=== PATIENT | female | born 1945 | race Caucasian/White ===

== ENCOUNTER 2023-10-28 09:28 | Outpatient (AMB) | payer MEDICARE, SELFPAY ==
--- NOTE | 2023-10-28 10:09 | A.OFFPC_ITS ---
Vital Signs 10/28/23 10:19 10/28/23 10:21 Height 5 ft 2.5 in Weight 162 lb 4 oz BMI 29.2 BP 156/90 H 150/88 H Blood Pressure Location Lt brachial Lt brachial Position Sitting Sitting Respiration 16 Pulse 81 Pulse Source Pulse Oximeter Temp 98.4 F Temp Source Oral Pulse Oximetry (%) 96 Oxygen Delivery Method Room Air Intake Visit Reasons: est care/ meds Intake Note: New patient visit. Metoprolol refill, and PA needed Child Protective Services Social Worker Required: No Allergies levalbuterol [From Xopenex] Allergy (Severe, Verified 10/28/23 10:50) leg cramps HECTOR Inhibitors Allergy (Unknown, Verified 10/28/23 10:50) Fainting albuterol Allergy (Unknown, Verified 10/28/23 10:50) Chest Pain atorvastatin [From Lipitor] Allergy (Unknown, Verified 10/28/23 10:50) muscle wasting budesonide [From Pulmicort] Allergy (Unknown, Verified 10/28/23 10:50) Fainting codeine Allergy (Unknown, Verified 10/28/23 10:50) Hallucinations epinephrine Allergy (Unknown, Verified 10/28/23 10:50) elevated blood pressure erythromycin base Allergy (Unknown, Verified 10/28/23 10:50) shock like stupor gemfibrozil [From Lopid] Allergy (Unknown, Verified 10/28/23 10:50) bloody diarrhea meclizine Allergy (Unknown, Verified 10/28/23 10:50) itchy roof mouth nabumetone [From Relafen] Allergy (Unknown, Verified 10/28/23 10:50) Facial Swelling omega-3 acid ethyl esters Allergy (Unknown, Verified 10/28/23 10:50) Facial Swelling penicillin V Allergy (Unknown, Verified 10/28/23 10:50) Hives Penicillins Allergy (Unknown, Verified 10/28/23 10:50) Hives rofecoxib [From Vioxx] Allergy (Unknown, Verified 10/28/23 10:50) Facial Swelling tetracycline Allergy (Unknown, Verified 10/28/23 10:50) Rash iodine Allergy (Verified 10/28/23 10:50) Facial Swelling Sulfa (Sulfonamide Antibiotics) Allergy (Verified 10/28/23 10:50) Rash Medication List - Last Reconciled 10/28/23 by Karen Mondragon MD amlodipine (Norvasc) 2.5 mg PO DAILY clopidogrel 75 mg PO DAILY guar gum 1 tbsp PO DAILY ipratropium bromide 17 mcg/actuation (Atrovent HFA) 2 puffs inhalation Q8H loratadine 10 mg PO DAILY 90 days montelukast 5 mg PO DAILY nitrofurantoin monohyd/m-cryst 100 mg 100 mg PO Q12H PRN 7 days pantoprazole 40 mg PO DAILY rosuvastatin 5 mg PO .QOD tizanidine mg PO Q8H PRN Toprol XL (metoprolol succinate) 25 mg PO DAILY 90 days NS triamterene 50 mg PO DAILY vit C,E,Zn,Sg-nifcv3-hhw-zeax 250-2.5-0.5 mg caps PO vit C,V-Ol-govas-lutein-zeaxan 250-90-40-1 mg (PreserVision AREDS-2) 1 tab PO BID 90 days Tobacco use date assessed: 10/28/23 Fall risk assessment: No Falls in past year Last assessed Fall Risk: 10/28/23 Dental Screening Dental Screen Date: 10/28/23 Did you have a dental visit in the last 12 months?: Yes Did you have a dental problem in the last 6 months where you did not have access to dental care?: No Was dental information given to patient?: Patient has dentist HPI HPI Comments History of Present Illness Details The patient is a 78 year old female with a past medical history of hypertension, hyperlipidemia, CVA, allergies, frequent UTI presenting for follow up CV: On amlodipine 2.5mg daily (does not tolerate generic), toprol 25mg daily (does not tolerate generic!), plavix, crestor 5mg every few days (difficulty tolerating statins). 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 Her neurologist is retiring OA: Joint pain, neck pain. Residual right sided weakness after CVA Urogyn: History of frequent UTI. Uses post coital macrobid. Needs less frequently as has h/o prostate cancer Neuropsych: History of CVA as above. 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 Had a lot of stress 2/2 husbands cancer. Her balance was worse in the setting of stress. [facility] Medical History (Updated 10/28/23 @ 15:34 by Karen Mondragon MD) Hypercholesteremia Anxiety Imbalance Memory loss Incontinence Asthma Surgical History (Updated 10/28/23 @ 10:51 by Joslyn Van CMA) H/O section History of tonsillectomy Family History (Updated 10/28/23 @ 10:55 by Joslyn Van CMA) Mother HTN (hypertension) Cardiovascular disease Thyroid disorder Maternal Grandmother HTN (hypertension) Cardiovascular disease Maternal Grandfather Cardiovascular disease Social History (Updated 10/28/23 @ 10:52 by Joslyn Van CMA) Housing: House Patient Tobacco Use Status: Never used Tobacco e-Cigarette/Vaping Use: Never Used service: No Current occupational status: retired Cognitive needs: No Hearing needs: Yes (Hearing needs) Vision needs: Yes (glasses) Questionnaire PHQ-9 Over the last 2 weeks, how often have you been bothered by any of the following problems? 1. Little interest or pleasure in doing things: not at all 2. Feeling down, depressed, or hopeless: not at all 3. Trouble falling or staying asleep, or sleeping too much: several days 4. Feeling tired or having little energy: not at all 5. Poor appetite or overeating: not at all 6. Feeling bad about yourself - or that you are a failure or have let yourself or your family down: not at all 7. Trouble concentrating on things, such as reading the newspaper or watching television: not at all 8. Moving or speaking so slowly that other people could have noticed. Or the opposite - being so fidgety or restless that you have been moving around a lot more than usual: not at all 9. Thoughts that you would be better off or of hurting yourself in some way: not at all Total score: 1 Depression Screening Interpretation: Negative (neg) Depression Screening Done: Yes 43883 - PHQ-9 Billing: Yes Source: Developed by Drs. Casimiro Mcdermott, Jojo Jackson, Luther Lanier and colleagues, with an educational corina from [employer]. Thrive Questionnaire Date Thrive assessed: 10/28/23 I am a: Patient What is your living situation today?: I have a steady place to live Within the past 12 months, did the food you bought not last and you didn't have the money to get more?: Never true Within the past 12 months, did you worry whether your food would run out before you got money to buy more?: Never true Do you have trouble paying for medicines?: No Do you have trouble getting transportation to medical appointments?: No Do you have trouble paying your heating and electricity bill?: No Do you have trouble taking care of your child, family member or friend?: No Do you have trouble with day-to-day activities such as bathing, preparing meals, shopping, managing finances, etc.?: No Are you currently unemployed and looking for a job?: No Are you interested in more education?: No Please select the resources that you would like help with: None Currently or been in a relationship where the following occur: no concerns reported THRIVE Score: 0 AUDIT C Alcohol Use Questionnaire (AUDIT-C) 1. How often do you have a drink containing alcohol?: Never 3. How often do you have six or more drinks on one occasion?: Never Total Score: 0 CJ-7 AMB Questionnaire CJ-7 Date CJ - 7 assessed: 10/28/23 Feeling nervous, anxious, or on edge: 1 = Several days Not being able to stop or control worryin = Several days Worrying too much about different things: 1 = Several days Trouble relaxin = Several days Being so restless that it is hard to sit still: 0 = Not at all Becoming easily annoyed or irritable: 1 = Several days Feeling afraid as if something awful might happen: 0 = Not at all Total CJ-7 score (0-4 normal; 5-9 mild; 10-14 moderate; 15-21 severe): 5 Source: Developed by Drs. Casimiro Mcdermott, Jojo Jackson, Luther Lanier and colleagues, with an educational corina from [employer]. CJ-7 Assessment Billing CJ-7 Assessment Tool: CJ-7 Assessment 73008 Review of Systems Const Details: ROS CONSTITUTIONAL: Denies weight loss, fever and chills. HEENT: Denies changes in vision and hearing. RESPIRATORY: Denies SOB and cough. CV: Denies palpitations and CP GI: Denies abdominal pain, nausea, vomiting and diarrhea. : Denies dysuria and urinary frequency. MSK: Denies new myalgia and joint pain. SKIN: Denies rash and pruritus. NEUROLOGICAL: Denies headache PSYCHIATRIC: Denies recent changes in mood. Physical exam (Primary Care) Vital Signs: Last Vital Signs Temp 98.4 F 10/28/23 10:19 Pulse 81 10/28/23 10:19 Resp 16 10/28/23 10:19 BP 150/88 H 10/28/23 10:21 Pulse Ox 96 10/28/23 10:19 Oxygen Delivery Method Room Air 10/28/23 10:19 PHYSICAL EXAM: GENERAL: Alert and oriented x 3. NAD EYES: EOMI. Anicteric. HENT: Moist mucous membranes. No scleral icterus. No cervical lymphadenopathy. LUNGS: Clear to auscultation bilaterally. CARDIOVASCULAR: Regular rate and rhythm. No murmur. No JVD. ABDOMEN: Soft, non-tender +bs EXTREMITIES: No edema. Non-tender. SKIN: No rashes or lesions. Warm. NEUROLOGIC: No focal neurological deficits. CN II-XII grossly intact PSYCHIATRIC: Cooperative. Appropriate mood and affect BMI result Body Mass Index 29.2 Tobacco/Smoking Status: Tobacco use Status Tobacco use date assessed 10/28/23 10/28/23 10:24 Patient Tobacco Use Status Never used Tobacco 10/28/23 10:24 e-Cigarette/Vaping Use Never Used 10/28/23 10:24 PHQ-9: PHQ-9 Score PHQ-9: Total score 1 10/28/23 11:05 Depression Screening Interpretation: Negative (neg) Thrive Assessment: Date of Thrive Assessment Date Thrive assessed 10/28/23 10/28/23 10:56 Currently or been in a relationship where the following occur: no concerns reported Assessment and Plan Assessment & Plan (1) Hypertension: Comment: Adequately controlled on current medications. Code(s): I10 - Essential (primary) hypertension Qualifiers: Hypertension type: primary hypertension Qualified Code(s): I10 - Essential (primary) hypertension (2) Allergies: Code(s): T78.40XA - Allergy, unspecified, initial encounter Qualifiers: Encounter type: sequela Qualified Code(s): T78.40XS - Allergy, unspecified, sequela (3) GERD (gastroesophageal reflux disease): Code(s): K21.9 - Gastro-esophageal reflux disease without esophagitis Qualifiers: Esophagitis presence: esophagitis presence not specified Qualified Code(s): K21.9 - Gastro-esophageal reflux disease without esophagitis (4) Hyperlipidemia: Comment: Takes statin as tolerated Code(s): E78.5 - Hyperlipidemia, unspecified Qualifiers: Hyperlipidemia type: mixed hyperlipidemia Qualified Code(s): E78.2 - Mixed hyperlipidemia (5) CVA (cerebral vascular accident): Code(s): I63.9 - Cerebral infarction, unspecified Qualifiers: CVA mechanism: unspecified Qualified Code(s): I63.9 - Cerebral infarction, unspecified (6) KIMBERLY treated with BiPAP: Code(s): G47.33 - Obstructive sleep apnea (adult) (pediatric) (7) Heart murmur: Code(s): R01.1 - Cardiac murmur, unspecified (8) Osteopenia: Code(s): M85.80 - Other specified disorders of bone density and structure, unspecified site Qualifiers: Osteopenia location: unspecified Qualified Code(s): M85.80 - Other specified disorders of bone density and structure, unspecified site (9) Lumbar disc disease: Code(s): M51.9 - Unspecified thoracic, thoracolumbar and lumbosacral intervertebral disc disorder (10) Vertigo: Code(s): R42 - Dizziness and giddiness (11) Osteoarthritis: Code(s): M19.90 - Unspecified osteoarthritis, unspecified site Qualifiers: Osteoarthritis location: multiple joints Osteoarthritis type: primary Qualified Code(s): M15.9 - Polyosteoarthritis, unspecified (12) IBS (irritable bowel syndrome): Code(s): K58.9 - Irritable bowel syndrome without diarrhea Qualifiers: Irritable bowel syndrome type: unspecified Qualified Code(s): K58.9 - Irritable bowel syndrome without diarrhea (13) Anxiety disorder, unspecified: Code(s): F41.9 - Anxiety disorder, unspecified Qualifiers: Anxiety disorder type: unspecified anxiety disorder Qualified Code(s): F41.9 - Anxiety disorder, unspecified Medications: New rosuvastatin 5 mg PO .QOD Toprol XL (metoprolol succinate) 25 mg PO DAILY 90 days 90 tabs 3RF NS loratadine 10 mg PO DAILY 90 days 90 tabs 3RF nitrofurantoin monohyd/m-cryst 100 mg must administer with a meal/food 100 mg PO Q12H 7 days PRN 14 caps 3RF dysuria ipratropium bromide 17 mcg/actuation (Atrovent HFA) 2 puffs inhalation Q8H 12.9 grams 0RF vit C,E-Zj-yvysk-lutein-zeaxan 250-90-40-1 mg (PreserVision AREDS-2) 1 tab PO BID 90 days 90 caps 0RF nitrofurantoin monohyd/m-cryst 100 mg must administer with a meal/food 100 mg PO Q12H 7 days PRN 14 caps 3RF dysuria Coding Level of Care Code Est Pt Level 5 (22720) Complex EM visit Add On G2211 Diagnoses Primary hypertension I10 Hypertension type: primary hypertension Allergy, sequela T78.40XS Encounter type: sequela Gastroesophageal reflux disease, unspecified whether esophagitis present K21.9 Esophagitis presence: esophagitis presence not specified Mixed hyperlipidemia E78.2 Hyperlipidemia type: mixed hyperlipidemia Cerebrovascular accident (CVA), unspecified mechanism I63.9 CVA mechanism: unspecified KIMBERLY treated with BiPAP G47.33 Heart murmur R01.1 Osteopenia, unspecified location M85.80 Osteopenia location: unspecified Lumbar disc disease M51.9 Vertigo R42 Primary osteoarthritis involving multiple joints M15.9 Osteoarthritis location: multiple joints Osteoarthritis type: primary Irritable bowel syndrome, unspecified type K58.9 Irritable bowel syndrome type: unspecified Anxiety disorder, unspecified type F41.9 Anxiety disorder type: unspecified anxiety disorder Additional Codes CJ-7 Assessment Billing - CJ-7 Assessment Tool: CJ-7 Assessment 53170 ([id number]) Time Spent (min) 53
[2023-10-28 10:19] VITALS: BP 156/90; PULSE 81; RESP 16; TEMP 36.9; O2SAT 96; BMI 29.2
[2023-10-28 10:21] VITALS: BP 150/88
== END 2023-10-28 11:07 | disposition home or self-care (01) ==
PROVIDERS: PCP Internal Medicine; Visit Provider Internal Medicine
DX: I10 Essential (primary) hypertension (principal); T78.40XS Allergy, unspecified, sequela; K21.9 Gastro-esophageal reflux disease without esophagitis; E78.2 Mixed hyperlipidemia; I63.9 Cerebral infarction, unspecified; G47.33 Obstructive sleep apnea (adult) (pediatric); R01.1 Cardiac murmur, unspecified; M85.80 Other specified disorders of bone density and structure, unspecified site; M51.9 Unspecified thoracic, thoracolumbar and lumbosacral intervertebral disc disorder; R42 Dizziness and giddiness; M15.9 Polyosteoarthritis, unspecified; K58.9 Irritable bowel syndrome, unspecified
CPT/HCPCS: 99215; G2211

== ENCOUNTER 2024-04-09 08:06 | Outpatient (AMB) | payer MEDICARE, SELFPAY ==
--- NOTE | 2024-04-09 08:25 | A.OFFVIS_ITS ---
Intake Vital Signs 04/09/24 08:32 04/09/24 09:22 Height 5 ft 2.5 in Weight 159 lb 8 oz BMI 28.7 BP 144/80 H 136/72 Blood Pressure Location Lt brachial Lt brachial Position Sitting Left Lateral Respiration 14 Pulse 80 Pulse Source Pulse Oximeter Pulse Oximetry (%) 97 Oxygen Delivery Method Simple Mask Intake Visit Reasons: Medicare Annual Wellness Intake Note: annual medicare wellness Allergies levalbuterol [From Xopenex] Allergy (Severe, Verified 04/09/24 09:12) leg cramps HECTOR Inhibitors Allergy (Unknown, Verified 04/09/24 09:12) Fainting albuterol Allergy (Unknown, Verified 04/09/24 09:12) Chest Pain atorvastatin [From Lipitor] Allergy (Unknown, Verified 04/09/24 09:12) muscle wasting budesonide [From Pulmicort] Allergy (Unknown, Verified 04/09/24 09:12) Fainting codeine Allergy (Unknown, Verified 04/09/24 09:12) Hallucinations epinephrine Allergy (Unknown, Verified 04/09/24 09:12) elevated blood pressure erythromycin base Allergy (Unknown, Verified 04/09/24 09:12) shock like stupor gemfibrozil [From Lopid] Allergy (Unknown, Verified 04/09/24 09:12) bloody diarrhea meclizine Allergy (Unknown, Verified 04/09/24 09:12) itchy roof mouth nabumetone [From Relafen] Allergy (Unknown, Verified 04/09/24 09:12) Facial Swelling omega-3 acid ethyl esters Allergy (Unknown, Verified 04/09/24 09:12) Facial Swelling penicillin V Allergy (Unknown, Verified 04/09/24 09:12) Hives Penicillins Allergy (Unknown, Verified 04/09/24 09:12) Hives rofecoxib [From Vioxx] Allergy (Unknown, Verified 04/09/24 09:12) Facial Swelling tetracycline Allergy (Unknown, Verified 04/09/24 09:12) Rash iodine Allergy (Verified 04/09/24 09:12) Facial Swelling Sulfa (Sulfonamide Antibiotics) Allergy (Verified 04/09/24 09:12) Rash Medication List - Last Reconciled 04/09/24 by Dona Merino, THEATRICAL TROUPER- amlodipine (Norvasc) 2.5 mg PO DAILY clopidogrel 75 mg PO DAILY guar gum 1 tbsp PO DAILY ipratropium bromide 17 mcg/actuation (Atrovent HFA) 2 puffs inhalation Q8H loratadine 10 mg PO DAILY 90 days montelukast 5 mg PO DAILY nitrofurantoin monohyd/m-cryst 100 mg 100 mg PO Q12H PRN 7 days pantoprazole 40 mg PO DAILY rosuvastatin 5 mg PO DAILY tizanidine mg PO Q8H PRN Toprol XL (metoprolol succinate) 25 mg PO DAILY 90 days NS triamterene 50 mg PO DAILY vit C,E,Zn,Fe-ugdqh8-twg-zeax 250-2.5-0.5 mg caps PO vit C,T-Ug-mecht-lutein-zeaxan 250-90-40-1 mg (PreserVision AREDS-2) 1 tab PO BID 90 days Do you need a note to return to daycare/school/sports/work: No HPI HPI Comments History of Present Illness Details Here today for AWV. The Medicare Annual Wellness Visit (AWV) is a yearly appointment with a health professional to identify health risks and help reduce them and to create or update a personalized prevention plan. During a Medicare AWV, health professionals should also review any current opioid prescriptions, detect any cognitive impairment, and establish or update medical and family history. 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 Colon: 2018 Mammo: reports done Summer 2023 DEXA Summer 2023 -2.4 PAP Summer 2023 every 2 years Vaccines: Flu declined; Tdap 2017. AAA screen: NA EKG: n/a [place] of Care: Neuro Opth[facility] Endo And as noted in chart Visual Acuity: See below, wears glasses, has macular Hearing Screening: Wears hearing aides; Normal w/ aides. ACP: HCP and MOLST complete - asked to scan into chart today Dietary/Nutrition/Exercise Edu provided: Y During the course of the visit the patient was educated and counseled about appropriate screening and preventative services. Patient instructions were provided to the patient in written or electronic format. I have reviewed and verified the above information. New problem discuss today. She reports that she has a history of orthostatic hypotension that was worsened by travel back in November. She was several all ergies. Reports that she was not able to drink any for the steven while on the airplane. [place] like she was dehydrated. She was traveling tomorrow to [place] and worries about recurrence BP log and P log from 11/2023- current reviewed SBP range 140-110 DBP [id number] P range 60-80 bpm GERD w/ AERads taken for Macular - see below for details. Plan Advised for the patient to hydrate liberally at least 24 hours before her flight. Include something like Pedialyte or electrolyte solution that she was able to tolerate. While she was at the airport I have advised for her to bring an empty water bottle in use the tap water on hand. She should continue to monitor her vital signs and follow up with her primary care provider. Call Optho re: GERD with med; if addl PPI needed, send portal message Cont all meds as directed cont care w/ team RTO 6 mo routine fu with PCP, sooner PRN This note is constructed using voice recognition software. While every effort has been made to ensure accuracy in habitat management coordinator, still errors may have been included Sometimes, these errors may affect the content or meaning of the given sentence . Total time spent caring for the patient today was 20 minutes. This includes time spent before the visit reviewing the chart, time spent during the visit, and time spent after the visit on documentation [facility] Medical History (Updated 04/09/24 @ 16:11 by Dona Merino, GINA-) Hypercholesteremia Anxiety Imbalance Memory loss Incontinence Asthma Surgical History (Updated 10/28/23 @ 10:51 by Joslyn Van CMA) H/O section History of tonsillectomy Family History (Updated 10/28/23 @ 10:55 by Joslyn Van CMA) Mother HTN (hypertension) Cardiovascular disease Thyroid disorder Maternal Grandmother HTN (hypertension) Cardiovascular disease Maternal Grandfather Cardiovascular disease Social History (Updated 10/28/23 @ 10:52 by Joslyn Van CMA) Housing: House Patient Tobacco Use Status: Never used Tobacco e-Cigarette/Vaping Use: Never Used service: No Current occupational status: retired Cognitive needs: No Hearing needs: Yes (Hearing needs) Vision needs: Yes (glasses) Questionnaire Medicare Wellness Checkup What [age]?: [age] What gender do you identify with?: female During the past 4 weeks, how much have you been bothered by emotional problems such as feeling anxious, depressed, irritable, sad or downhearted, and blue?: slightly During the past 4 weeks, has your physical & emotional health limited your social activities with family, friends, neighbors, or groups?: slightly During the past 4 weeks, how much bodily pain have you generally had?: very mild pain During the past 4 weeks, was someone available to help you if you needed & wanted help?: yes, as much as I wanted During the past 4 weeks, what was the hardest physical activity you could do for at least 2 minutes?: moderate Can you get to places out of walking distance without help? (For eg., can you travel alone on buses, taxis or drive your car?): Yes Can you go shopping for groceries or clothes without someone's help?: Yes Can you prepare your own meals?: Yes Can you do your housework without help?: Yes Because of any health problems, do you need the help of another person with your personal care needs such as eating, bathing, dressing or getting around the house?: No Can you handle your own money without help?: Yes During the past 4 weeks, how would you rate your health in general?: good During the past 4 weeks how have things been going for you?: pretty well Are you having difficulties driving your car?: no Do you always fasten your seat belt when you are in a car?: yes, usually During past 4 weeks, have you been bothered by the following: never: Sexual problems?, Trouble eating well?, Teeth or denture problems?, Problems using the telephone? and Tiredness or fatigue? and sometimes: Falling or dizzy when standing up Have you fallen 2 or more times in the past year?: No Are you afraid of falling?: Yes Are you a smoker?: no During the past 4 weeks, how many drinks of wine, beer, or other alcoholic beverages did you have?: no alcohol at all Do you exercise for about 20 minutes 3 or more times a week?: yes, all the time Have you been given information to help with the following?: no: Hazards in your house that might hurt you? and no: Keeping track of your medications? How often do you have trouble taking medicines the way you have been told to take them?: I always take medicine as prescribed How confident are you that you can control & manage most of your health problems?: very confident What is your race?: White Activity of Daily Living Bathing - sponge bath, tub bath or shower: receives no assistance (gets in/out by self, if usual bathing means Dressing - getting clothes from closets & drawers, including inner/outer garments & fasteners.: gets clothes & gets completely dressed without help Toileting - going to the 'toilet room' for urine/bowel elimination & cleaning self/arranging clothes: goes to toilet room, cleans self, arranges clothes without help Transfer: moves in & out of bed and chair without help (may use support object) Continence: has occasional 'accidents' Feeding: feeds self without help Total Score: 0 Information obtained from: patient Using telephone: independent Traveling: independent Shopping: independent Preparing meals: independent Housework: independent Taking medicine: independent Managing money: independent PHQ-9 Over the last 2 weeks, how often have you been bothered by any of the following problems? 1. Little interest or pleasure in doing things: not at all 2. Feeling down, depressed, or hopeless: not at all 3. Trouble falling or staying asleep, or sleeping too much: not at all 4. Feeling tired or having little energy: not at all 5. Poor appetite or overeating: not at all 6. Feeling bad about yourself - or that you are a failure or have let yourself or your family down: not at all 7. Trouble concentrating on things, such as reading the newspaper or watching television: not at all 8. Moving or speaking so slowly that other people could have noticed. Or the opposite - being so fidgety or restless that you have been moving around a lot more than usual: not at all 9. Thoughts that you would be better off or of hurting yourself in some way: not at all Total score: 0 Depression Screening Interpretation: Negative Depression Screening Done: Yes 74425 - PHQ-9 Billing: Yes Source: Developed by Drs. Casimiro Mcdermott, Jojo Jackson, Luther Lanier and colleagues, with an educational corina from [employer]. Review of Systems Const Details: cont w/ urinary incont; doing kegels taking benefiber for 7 years. Since end jan fecal incont doing well. Taking Aereds 2 for macular degen. Tolerating in the AM but in the evening has GI upset. Thinks this is related to the Zinc. Takes AM dose w/ Pantoprazole. Self reduced to once per day. Advised to let the Eye Doctor to know this. If she needs to take this BID, advised to send a message via the portal. Could consider adding add'l dose, even at a lower mg. Physical Exam Vital Signs: Last Vital Signs Pulse 80 04/09/24 08:32 Resp 14 04/09/24 08:32 BP 136/72 04/09/24 09:22 Pulse Ox 97 04/09/24 08:32 Oxygen Delivery Method Simple Mask 04/09/24 08:32 BMI result Body Mass Index 28.7 Const Other: Awake alert oriented no acute distress Regular rate and rhythm, 1/6 systolic murmur Lung sounds clear to auscultation bilat Office Procedures Hearing Screen 26489 - Screening Test, pure tone, air only Vision Screening Right Eye: 20/30 Left Eye: 20/30 Bilateral: 20/30 Color: Pass Corrected: Pass (wearing glasss) 56944 - Vision Screening Results AMB Hemoglobin A1c AMB Hemoglobin A1c 5.9 % Last Edit by Thalia Estrella MA on 04/09/24 08:49 Results Reviewed Results Reviewed: Laboratory Last Values Hgb A1c (Clinic) 5.9 % (4.0-6.0) 04/09/24 08:26 Assessment & Plan Assessment & Plan (1) Encounter for subsequent annual wellness visit (AWV) in Medicare patient: Code(s): Z00.00 - Encounter for general adult medical examination without abnormal findings Plan: . (2) Encounter for screening for diabetes mellitus: Code(s): Z13.1 - Encounter for screening for diabetes mellitus Plan: . (3) Hyperlipidemia: Comment: Takes statin as tolerated Code(s): E78.5 - Hyperlipidemia, unspecified Qualifiers: Hyperlipidemia type: mixed hyperlipidemia Qualified Code(s): E78.2 - Mixed hyperlipidemia Plan: . (4) Hypertension: Comment: Adequately controlled on current medications. Code(s): I10 - Essential (primary) hypertension Qualifiers: Hypertension type: primary hypertension Qualified Code(s): I10 - Essential (primary) hypertension Plan: . (5) Orthostasis: Code(s): I95.1 - Orthostatic hypotension Plan: . (6) Macular degeneration: Code(s): H35.30 - Unspecified macular degeneration Qualifiers: Eye laterality: bilateral Macular degeneration type: unspecified type Qualified Code(s): H35.30 - Unspecified macular degeneration Plan: . (7) Mild intermittent asthma in adult without complication: Code(s): J45.20 - Mild intermittent asthma, uncomplicated Plan: . (8) GERD (gastroesophageal reflux disease): Code(s): K21.9 - Gastro-esophageal reflux disease without esophagitis Qualifiers: Esophagitis presence: esophagitis presence not specified Qualified Code(s): K21.9 - Gastro-esophageal reflux disease without esophagitis Plan: . (9) Allergies: Code(s): T78.40XA - Allergy, unspecified, initial encounter Qualifiers: Encounter type: sequela Qualified Code(s): T78.40XS - Allergy, unspecified, sequela Plan: . (10) ACP (advance care planning): Code(s): Z71.89 - Other specified counseling Plan: . Orders: Orders AMB Hemoglobin A1c Today Z13.1 - Encounter for screening for diabetes mellitus, Z13.9 - Encounter for screening, unspecified LDL Cholesterol Direct Today E78.2 - Mixed hyperlipidemia Patient Instructions: Health screenings for women You should visit your health care provider from time to time, even if you are healthy. The purpose of these visits is to: Screen for medical issues Assess your risk for future medical problems Encourage a healthy lifestyle Update vaccinations and other preventive care services Help you get to know your provider in case of an illness Information Even if you feel fine, you should still see your provider for regular checkups. These visits can help you avoid problems in the future. For example, the only way to find out if you have high blood pressure is to have it checked regularly. High blood sugar and high cholesterol levels also may not have any symptoms in the early stages. A simple blood test can check for these conditions. There are specific times when you should see your provider or receive specific health screenings. The [place] Preventive Services Task Force publishes a list of recommended screenings. Below are screening guidelines for women ages 18 to 39. BLOOD PRESSURE SCREENING Your blood pressure should be checked at least once every 3 to 5 years if: Your blood pressure is in the normal range (top number less than 120 mm Hg and bottom number less than 80 mm Hg) You don't have risk factors for high blood pressure Ask your provider if you need your blood pressure checked more often if: The top number is 120 to 129 mm Hg or the bottom number is 70 to 79 mm Hg You have diabetes, heart disease, kidney problems, are overweight, or have certain other health conditions You have a first-degree relative with high blood pressure You are Black You had high blood pressure during a If the top number is 130 mm Hg or greater or the bottom number is 80 mm Hg or greater, this is considered stage 1 hypertension. Schedule an appointment with your provider to learn how you can reduce your blood pressure. Watch for blood pressure screenings in your area. Ask your provider if you can stop in to have your blood pressure checked. BREAST CANCER SCREENING Experts do not agree about the benefits of breast self-exams in finding breast cancer or saving lives. Talk to your provider about what is best for you. A screening mammogram is not recommended for most women under age 40. Your provider may discuss and recommend mammograms, MRI scans, or ultrasounds if you have an increased risk for breast cancer, such as: A mother or sister who had breast cancer at a young age (most often starting screening earlier than the age the close relative was diagnosed) You carry a high-risk genetic marker CERVICAL CANCER SCREENING Cervical cancer screening should start at age 21 years unless your provider advises otherwise. After the first test: Women ages 21 through 29 should have a Pap test every 3 years. Exoprts do not agree on whether HPV testing is recommended for this age group. Women ages 30 through 65 should be screened with either a Pap test every 3 years or the HPV test every 5 years or both tests every 5 years (called cotesting ). Women who have been treated for precancer (cervical dysplasia) should continue to have Pap tests for 20 years after treatment or until age 65, whichever is longer. If you have had your uterus and cervix removed (total hysterectomy), and you have not been diagnosed with cervical cancer or precancer (high grade cervical neoplasia), you do not need cervical cancer screening. CHOLESTEROL SCREENING Cholesterol screening should begin at: Age 45 for women with no known risk factors for coronary heart disease Age 20 for women with known risk factors for coronary heart disease Repeat cholesterol screening should take place: Every 5 years for women with normal cholesterol levels More often if changes occur in lifestyle (including weight gain and diet) More often if you have diabetes, heart disease, kidney problems, or certain other conditions DIABETES SCREENING You should be screened for diabetes starting at age 35 and then repeated every 3 years if you have no risk factors for diabetes. Screening may need to start earlier and be repeated more often if you have other risk factors for diabetes, such as: You have a first degree relative with diabetes. You are overweight or have obesity. You have high blood pressure, prediabetes, or a history of heart disease. Screening for diabetes should be done if you are planning to become and you are overweight and have other risk factors such as high blood pressure. DENTAL EXAM Go to the dentist once or twice every year for an exam and cleaning. Your dentist will evaluate if you need more frequent visits. EYE EXAM Have an eye exam every 5 to 10 years before age 40. If you have vision problems, have an eye exam every 2 years or more often if recommended by your provider. You should have an eye exam that includes an examination of your retina (back of your eye) at least every year if you have diabetes. IMMUNIZATIONS Commonly needed vaccines include: Flu shot: get one every year. COVID-19 vaccine: ask your provider what is best for you. Tetanus-diphtheria and acellular pertussis (Tdap) vaccine: have one at or after age 19 as one of your tetanus-diphtheria vaccines if you did not receive it as an adolescent. Tetanus-diphtheria: have a booster (or Tdap) every 10 years. Varicella vaccine: receive 2 doses if you never had chickenpox or the varicella vaccine. Hepatitis B vaccine: receive 2, 3, or 4 doses, depending on your exact circumstances. Measles, mumps, and rubella (MMR) vaccine: receive 1 to 2 doses if you are not already immune to MMR. Your provider can tell you if you are immune. Ask your provider about the human papillomavirus (HPV) vaccine if: You have not received the HPV vaccine in the past You have not completed the full vaccine series (you should catch up on this shot) Ask your provider if you should receive other immunizations if you have certain health problems that increase your risk for some diseases such as pneumonia. INFECTIOUS DISEASE SCREENING Women who are sexually active should be screened for chlamydia and gonorrhea up until age 25. Women 25 years and older should be screened for chlamydia and gonorrhea if at high risk. Screening for hepatitis C: All adults ages 18 to 79 should get a one-time test for hepatitis C. people should be screened at every . Screening for human immunodeficiency virus (HIV): All people ages 15 to 65 should get a one-time test for HIV. Depending on your lifestyle and medical history, you may also need to be screened for infections such as syphilis and HIV, as well as other infections. PHYSICAL EXAM All adults should visit their provider from time to time, even if they are healthy. The purpose of these visits is to: Screen for disease Assess your risk of future medical problems Encourage a healthy lifestyle Update your vaccinations and other preventive care services Maintain a relationship with a provider in case of an illness Your height, weight, and BMI should be checked at every exam. During your exam, your provider may ask you about: Depression and anxiety Diet and exercise Alcohol and tobacco use Safety issues, such as using seat belts, smoke detectors, and intimate partner violence Your medicines and risk for interactions SKIN SELF-EXAM Your provider may check your skin for signs of skin cancer, especially if you're at high risk, such as if you: Have had skin cancer before Have close relatives with skin cancer Have a weakened immune system OTHER SCREENING Talk with your provider about colon cancer screening if you have a strong family history of colon cancer or polyps, or if you have had inflammatory bowel disease or polyps yourself. Routine bone density screening of women under 40 is not recommended. Quality Reporting (2019) Adult ([facility] 138/08/21/68) Smoking risk assessment performed?: Yes Patient Tobacco Use Status: Never used Tobacco Depression screening performed: Yes Screen Results: Yes Negative screen Systolic BP not done?: Yes Diastolic BP not done?: Yes BMI screening not done: Yes BMI High - Follow Up: Yes High-plan Sexual Activity Screening ([facility] 153) Sexually active?: Yes Immunizations ([facility] 147, 117) Annual Influenza Vaccine: No Flu Vaccine not done: patient reason Measles Antibody Test: No Mumps Antibody Test: No Rubella Antibody Test: No Varicella Antibody Test: No Anti Hepatitis A IgG Antigen test: No Anti Hepatitis B Virus Surface Ab test: No Fall Risk Screening ([facility] 139) Last assessed Fall Risk: 04/09/24 Fall risk assessment: No Falls in past year Dementia Assessment ([facility] 149) Cognitive assessment recorded: Yes (6 CIT 0/28 wnl) Assessment of cognition with standardized tool: Yes Depression/Bipolar (159/160/161/177) PHQ-9: Total score: 0 Suicide risk assessment performed: Yes Ophthalmol:Cataracts Visual Acuity (133) Visual acuity exam performed: Yes (see below ) Coding Level of Care Code Medicare Subsequent (G0439) Est Pt Level 3 (43054) Diagnoses Encounter for subsequent annual wellness visit (AWV) in Medicare patient Z00.00 Encounter for screening for diabetes mellitus Z13.1 Mixed hyperlipidemia E78.2 Hyperlipidemia type: mixed hyperlipidemia Primary hypertension I10 Hypertension type: primary hypertension Orthostasis I95.1 Macular degeneration of both eyes, unspecified type H35.30 Eye laterality: bilateral Macular degeneration type: unspecified type Mild intermittent asthma in adult without complication J45.20 Gastroesophageal reflux disease, unspecified whether esophagitis present K21.9 Esophagitis presence: esophagitis presence not specified Allergy, sequela T78.40XS Encounter type: sequela ACP (advance care planning) Z71.89 CPT Codes Advance Care Planning - Time spent: 1-15 minutes, not on file ([id number]) Coding - Hearing Test Screenin - Screening Test, pure tone, air only ([id number]) Vision Screening - Vision Screenin - Vision Screening ([id number]) Advance Care Planning Advance Care Planning discussion: Completed/Scanned Date of discussion: 04/09/24 Who was present: self Forms completed: Health Care Proxy and MOLST Time spent: 1-15 minutes, not on file Actual minutes spent: 5 Did not discuss due to Cultural/Spiritual beliefs: No
[2024-04-09 08:32] VITALS: BP 144/80; PULSE 80; RESP 14; O2SAT 97; BMI 28.7
[2024-04-09 09:22] VITALS: BP 136/72
== END 2024-04-09 09:32 | disposition home or self-care (01) ==
PROVIDERS: PCP Internal Medicine; Visit Provider Internal Medicine
DX: Z00.00 Encounter for general adult medical examination without abnormal findings (principal); I10 Essential (primary) hypertension; E78.2 Mixed hyperlipidemia; Z01.00 Encounter for examination of eyes and vision without abnormal findings; Z01.10 Encounter for examination of ears and hearing without abnormal findings; Z13.1 Encounter for screening for diabetes mellitus; I95.1 Orthostatic hypotension; H35.30 Unspecified macular degeneration; J45.20 Mild intermittent asthma, uncomplicated; K21.9 Gastro-esophageal reflux disease without esophagitis; T78.40XS Allergy, unspecified, sequela; Z71.89 Other specified counseling

== ENCOUNTER → 2024-04-09 08:06 | Outpatient (BNVA) | payer MEDICARE, SELFPAY | PROVIDERS: PCP Internal Medicine; Visit Provider Internal Medicine | DX: Z00.00 Encounter for general adult medical examination without abnormal findings (principal); E78.2 Mixed hyperlipidemia; I10 Essential (primary) hypertension; I95.1 Orthostatic hypotension; H35.30 Unspecified macular degeneration; J45.20 Mild intermittent asthma, uncomplicated; K21.9 Gastro-esophageal reflux disease without esophagitis; T78.40XS Allergy, unspecified, sequela; X58.XXXS Exposure to other specified factors, sequela; Z01.00 Encounter for examination of eyes and vision without abnormal findings; Z01.10 Encounter for examination of ears and hearing without abnormal findings; Z13.1 Encounter for screening for diabetes mellitus; Z71.89 Other specified counseling | CPT/HCPCS: 83036 ==

== ENCOUNTER 2024-04-09 09:37 | Outpatient (REF) | payer MEDICARE, SELFPAY ==
[2024-04-12 07:43] LABS: LDL Cholesterol Direct 108 mg/dL (<100)
== END 2024-04-09 09:38 | disposition home or self-care (01) ==
LOC: HO.WFDLDS 09:37
PROVIDERS: Visit Provider Nurse Practitioner Family
DX: E78.2 Mixed hyperlipidemia (principal); Z13.1 Encounter for screening for diabetes mellitus; Z13.9 Encounter for screening, unspecified
CPT/HCPCS: 36415; 83721

== ENCOUNTER 2024-10-12 15:06 | Outpatient (AMB) | payer MEDICARE, SELFPAY ==
--- NOTE | 2024-10-12 15:20 | A.OFFPC_ITS ---
Vital Signs 10/12/24 15:29 Height 5 ft 2.5 in Weight 160 lb 4 oz BMI 28.8 BP 162/90 H Blood Pressure Location Lt brachial Position Sitting Respiration 14 Pulse 81 Pulse Source Pulse Oximeter Pulse Oximetry (%) 96 Oxygen Delivery Method Room Air Intake Visit Reasons: [address] Zambrano 30 min routine Intake Note: Six month follow up. Requesting refill on all medication since they only have one refill left. 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 Allergies levalbuterol [From Xopenex] Allergy (Severe, Verified 10/12/24 15:23) leg cramps HECTOR Inhibitors Allergy (Unknown, Verified 10/12/24 15:23) Fainting albuterol Allergy (Unknown, Verified 10/12/24 15:23) Chest Pain atorvastatin [From Lipitor] Allergy (Unknown, Verified 10/12/24 15:23) muscle wasting budesonide [From Pulmicort] Allergy (Unknown, Verified 10/12/24 15:23) Fainting codeine Allergy (Unknown, Verified 10/12/24 15:23) Hallucinations epinephrine Allergy (Unknown, Verified 10/12/24 15:23) elevated blood pressure erythromycin base Allergy (Unknown, Verified 10/12/24 15:23) shock like stupor gemfibrozil [From Lopid] Allergy (Unknown, Verified 10/12/24 15:23) bloody diarrhea meclizine Allergy (Unknown, Verified 10/12/24 15:23) itchy roof mouth nabumetone [From Relafen] Allergy (Unknown, Verified 10/12/24 15:23) Facial Swelling omega-3 acid ethyl esters Allergy (Unknown, Verified 10/12/24 15:23) Facial Swelling penicillin V Allergy (Unknown, Verified 10/12/24 15:23) Hives Penicillins Allergy (Unknown, Verified 10/12/24 15:23) Hives rofecoxib [From Vioxx] Allergy (Unknown, Verified 10/12/24 15:23) Facial Swelling tetracycline Allergy (Unknown, Verified 10/12/24 15:23) Rash iodine Allergy (Verified 10/12/24 15:23) Facial Swelling Sulfa (Sulfonamide Antibiotics) Allergy (Verified 10/12/24 15:23) Rash Medication List - Last Reconciled 10/12/24 by Karen Mondragon MD [Bipap BIPAP device and parts continuous while sleeping 10:5] calcium carbonate 600 mg PO DAILY cholecalciferol (vitamin D3) 50 mcg PO DAILY clopidogrel 75 mg PO DAILY epinephrine (EpiPen 2-Chirag) 0.3 mg IM Q10M PRN ipratropium bromide 17 mcg/actuation (Atrovent HFA) 2 puffs inhalation Q8H loratadine 10 mg PO DAILY 90 days montelukast 5 mg PO DAILY nitrofurantoin monohyd/m-cryst 100 mg 100 mg PO Q12H PRN 7 days Norvasc (amlodipine) 2.5 mg PO DAILY NS pantoprazole 40 mg PO DAILY rosuvastatin 5 mg PO TID Toprol XL (metoprolol succinate) 25 mg PO DAILY 90 days NS triamterene 50 mg PO DAILY vit C,E,Zn,Mb-zolnc7-yfp-zeax 250-2.5-0.5 mg caps PO vit C,L-De-pzlad-lutein-zeaxan 250-90-40-1 mg (PreserVision AREDS-2) 1 tab PO BID 90 days Tobacco use date assessed: 10/12/24 Dental Screening Dental Screen Date: 10/28/23 HPI HPI Comments History of Present Illness Details 79 y/o F with hypertension, hyperlipidem ia, CVA, allergies, frequent UTI, 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 Her neurologist is retiring GI: IBS. Has been having some bowel incontinence. Previously seeing Nadine Murillo. Declines colorectal. Will take immodium prn. Following FODMAP OA: Joint pain, neck pain. Residual right sided weakness after CVA Urogyn: History of frequent UTI. Uses post coital macrobid. Needs less frequently as has h/o prostate cancer Neuropsych: History of CVA as above. 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 Had a lot of stress 2/2 husbands cancer. Her balance was worse in the setting. Generally sleeping okay Blood pressure has been running low at home 110s-130s. She feels lightheaded at times. Ophtho: Dr Mock. AERADs for dry macular degeneration Colon: 2018 Mammo: reports done Summer 2023 DEXA Summer 2023 PAP Summer 2023 every 2 years Eye exams: AERads taken for Macular - see below for details. Vaccines: Flu declined; Tdap 2017. ROS see HPI PHYSICAL EXAM: GENERAL: Alert and oriented x 3. NAD EYES: EOMI. Anicteric. HENT: Moist mucous membranes. No scleral icterus. No cervical lymphadenopathy. LUNGS: Clear to auscultation bilaterally. CARDIOVASCULAR: Regular rate and rhythm. No murmur. No JVD. ABDOMEN: Soft, non-tender +bs EXTREMITIES: No edema. Non-tender. SKIN: No rashes or lesions. Warm. NEUROLOGIC: No focal neurological deficits. CN II-XII grossly intact PSYCHIATRIC: Cooperative. Appropriate mood and affect [facility] Medical History Hypercholesteremia Anxiety Imbalance Memory loss Incontinence Asthma Surgical History H/O section History of tonsillectomy Family History Mother HTN (hypertension) Cardiovascular disease Thyroid disorder Maternal Grandmother HTN (hypertension) Cardiovascular disease Maternal Grandfather Cardiovascular disease Social History Housing: House Patient Tobacco Use Status: Never used Tobacco e-Cigarette/Vaping Use: Never Used service: No Current occupational status: retired Cognitive needs: No Hearing needs: Yes (Hearing needs) Vision needs: Yes (glasses) Questionnaire Thrive Questionnaire Date Thrive assessed: 10/05/24 I am a: Patient What is your living situation today?: I have a steady place to live Within the past 12 months, did the food you bought not last and you didn't have the money to get more?: Never true Within the past 12 months, did you worry whether your food would run out before you got money to buy more?: Never true Do you have trouble paying for medicines?: No Do you have trouble getting transportation to medical appointments?: No Do you have trouble paying your heating and electricity bill?: No Do you have trouble taking care of your child, family member or friend?: No Do you have trouble with day-to-day activities such as bathing, preparing meals, shopping, managing finances, etc.?: No Are you currently unemployed and looking for a job?: No Are you interested in more education?: No Please select the resources that you would like help with: None Currently or been in a relationship where the following occur: No concerns reported THRIVE Score: 0 AUDIT C Alcohol Use Questionnaire (AUDIT-C) 1. How often do you have a drink containing alcohol?: Never Total Score: 0 CJ-7 AMB Questionnaire CJ-7 Date CJ - 7 assessed: 10/28/23 Feeling nervous, anxious, or on edge: 1 = Several days Not being able to stop or control worryin = Several days Worrying too much about different things: 1 = Several days Trouble relaxin = Not at all Being so restless that it is hard to sit still: 0 = Not at all Becoming easily annoyed or irritable: 0 = Not at all Feeling afraid as if something awful might happen: 0 = Not at all Total CJ-7 score (0-4 normal; 5-9 mild; 10-14 moderate; 15-21 severe): 3 Source: Developed by Drs. Casimiro Mcdermott, Jojo Jackson, Luther Lanier and colleagues, with an educational corina from [employer]. Physical exam (Primary Care) Vital Signs: Last Vital Signs Pulse 81 10/12/24 15:29 Resp 14 10/12/24 15:29 BP 162/90 H 10/12/24 15:29 Pulse Ox 96 10/12/24 15:29 Oxygen Delivery Method Room Air 10/12/24 15:29 BMI result Body Mass Index 28.8 Tobacco/Smoking Status: Tobacco use Status Tobacco use date assessed 10/12/24 10/12/24 15:29 Patient Tobacco Use Status Never used Tobacco 10/12/24 15:21 e-Cigarette/Vaping Use Never Used 10/12/24 15:21 Thrive Assessment: Date of Thrive Assessment Date Thrive assessed 10/05/24 10/12/24 15:21 Currently or been in a relationship where the following occur: No concerns reported Coding Level of Care Code Est Pt Level 5 (29784) Diagnoses Anxiety disorder, unspecified type F41.9 Anxiety disorder type: unspecified anxiety disorder Fatigue, unspecified type R53.83 Fatigue type: unspecified Mild intermittent asthma in adult without complication J45.20 KIMBERLY treated with BiPAP G47.33 Cerebrovascular accident (CVA), unspecified mechanism I63.9 CVA mechanism: unspecified Time Spent (min) 46 Assessment & Plan Assessment & Plan (1) Anxiety disorder, unspecified: Code(s): F41.9 - Anxiety disorder, unspecified Category: Medical Qualifiers: Anxiety disorder type: unspecified anxiety disorder Qualified Code(s): F41.9 - Anxiety disorder, unspecified (2) Fatigue: Code(s): R53.83 - Other fatigue Category: Medical Qualifiers: Fatigue type: unspecified Qualified Code(s): R53.83 - Other fatigue (3) Mild intermittent asthma in adult without complication: Code(s): J45.20 - Mild intermittent asthma, uncomplicated Category: Medical (4) KIMBERLY treated with BiPAP: Code(s): G47.33 - Obstructive sleep apnea (adult) (pediatric) Category: Medical (5) CVA (cerebral vascular accident): Code(s): I63.9 - Cerebral infarction, unspecified Category: Medical Qualifiers: CVA mechanism: unspecified Qualified Code(s): I63.9 - Cerebral infarction, unspecified Plan 79 y/o for follow up Some fatigue-labs ordered. Chronic medical conditions reviewed-IBS some increase in diarrhea episodes. recommend CR but declines at this time. Ok to take prn immodium HLD-stable on MWF dosing HTN-she is having symptoms when BP low, sounds like having some orthostasis. She will decrease toprol to 1/2 tab daily Orders: Orders Comprehensive Met. Panel Today E78.2 - Mixed hyperlipidemia, F41.9 - Anxiety disorder, unspecified, K21.9 - Gastro-esophageal reflux disease without esophagitis, K58.9 - Irritable bowel syndrome, unspecified, R53.83 - Other fatigue Lipid Panel Today E78.2 - Mixed hyperlipidemia, F41.9 - Anxiety disorder, unspecified, K21.9 - Gastro-esophageal reflux disease without esophagitis, K58.9 - Irritable bowel syndrome, unspecified, R53.83 - Other fatigue TSH reflex Free T4 Today E78.2 - Mixed hyperlipidemia, F41.9 - Anxiety disorder, unspecified, K21.9 - Gastro-esophageal reflux disease without esophagitis, K58.9 - Irritable bowel syndrome, unspecified, R53.83 - Other fatigue UA CC w/rflx Micro + Cult Today R53.83 - Other fatigue Complete Blood Count Auto Diff Today E78.2 - Mixed hyperlipidemia, F41.9 - Anxiety disorder, unspecified, K21.9 - Gastro-esophageal reflux disease without esophagitis, K58.9 - Irritable bowel syndrome, unspecified, R53.83 - Other fatigue Vitamin B12 and Folate Today E78.2 - Mixed hyperlipidemia, F41.9 - Anxiety disorder, unspecified, K21.9 - Gastro-esophageal reflux disease without esophagitis, K58.9 - Irritable bowel syndrome, unspecified, R53.83 - Other fatigue Medications: Changed From nitrofurantoin monohyd/m-cryst 100 mg must administer with a meal/food 100 mg PO Q12H 7 days PRN 14 caps 3RF dysuria To nitrofurantoin monohyd/m-cryst 100 mg must administer with a meal/food 100 mg PO DAILY PRN 30 caps 3RF dysuria 90 days From rosuvastatin 5 mg PO TID To rosuvastatin 5 mg PO 3XW 39 tabs 3RF 90 days Refilled Toprol XL (metoprolol succinate) 25 mg PO DAILY 90 tabs 3RF 90 days NS pantoprazole 40 mg PO DAILY 90 tabs 3RF triamterene 50 mg PO DAILY 90 caps 3RF Norvasc (amlodipine) Brand name only. GERBER 2.5 mg PO DAILY 90 tabs 3RF NS
[2024-10-12 15:29] VITALS: BP 162/90; PULSE 81; RESP 14; O2SAT 96; BMI 28.8
--- OUTSIDE RECORDS SUMMARY | 2024-10-12 18:24 | XMS_ITS ---
Author Organization [employer] [facility] Address [address] [place] [address] Care Team Providers Care Snow Groomer Name Role Phone Miri VASQUEZ MD, [place] Primary Care Provider Julia Adam Unavailable [phone] Allergies Allergen (clinical drug ingredient) Drug/Non Drug Allergy documented on EMR Reaction Allergy Type Onset Date Status angiotensin-converting enzyme inhibitor (FN) HECTOR INHIBITORS (uncoded) Unknown Allergy Active E-MYCIN Unknown Drug Allergy Active codeine CODEINE Unknown Drug Allergy Active tetracycline TETRACYCLINE Unknown Drug Allergy A ctive VIOXX Unknown Drug Allergy Active albuterol ALBUTEROL Unknown Drug Allergy Active EPINEPHrine Unknown Drug Allergy Activ e IODINE Unknown Drug Allergy Active atorvastatin Lipitor Unknown Drug Allergy Acti ve gemfibrozil LOPID Unknown Drug Allergy Activ e meclizine Meclizine HCl Unknown Drug Allergy Act soto budesonide Pulmicort Unknown Drug Allergy Active Xopenex Unknown Drug Allergy Active Penicillin Unknown Drug Allergy Active Substance with sulfonamide structure and antibacterial mechanism of action (substance) Sulfa Antibiotics Unknown Drug Allergy Active nabumetone Relafen Unknown Drug Allergy Active REASON FOR VISIT BD AND LAB FOLLOW UP Medications Medication SIG (Take, Route, Frequency, Duration) Notes Start Date End Date Status Pantoprazole Sodium 40 MG 1 tablet Orall y Once a day Active EpiPen Active Atrovent HFA 17 MCG/ACT 2 puffs Inhalati on Four times a day Active Clopidogrel Bisulfate 75 MG 1 tablet Ora lly Once a day Active Rosuvastatin Calcium 5 MG 1 tablet Orall y every other day Active Singulair 5 MG 1 tablet Orally Once a day 04/14/2012 Active Vitamin D 50 MCG (1999) 1 capsule Ora lly Once a day 03/25/2011 Active Toprol XL 25 MG 1 tablet Orally Once a day 04/14/2012 Active PreserVision AREDS 2 Active Claritin 10 MG 1 ORAL daily for -3 04/14/2012 Active Probiotic Active Dyrenium 50 MG 1 capsule Orally Onc e a day 04/14/2012 Active Vital Signs Temperature 97.3 degrees Fahrenheit 03/04/20 24 Blood pressure systolic 134 mm Hg 03/04/20 24 Blood pressure diastolic 84 mm Hg 024 Height 62.25 in 03/04/2024 Weight 160 lbs 03/04/2024 BMI 29.03 kg/m2 03/04/2024 Encounters Encounter Location Date Provider Diagnosis [address] [place] [address] 03/04/2024 Julia Casarez Other specified disorders of bone density and structure, 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 DISCUSSED OSTEOPENIA AND ITS NEGATIVE EFFECTS ON HER HEALTH. ADEQUATE CALCIUM AND VIT D. WEIGHT BEARING EXERCISES. REPEAT BMD IN 2025. Plan Of Treatment Treatment Notes Assessment Notes Other specified disorders of bone density and structure, multiple sites DISCUSSED PAT'S BMD RESULTS AND STEADY DECREASE IN T-SCORES. DISCUSSED OSTEOPENIA AND ITS NEGATIVE EFFECTS ON HER HEALTH. ADEQUATE CALCIUM AND VIT D. WEIGHT BEARING EXERCISES. REPEAT BMD IN 2025. Next Appt Details Follow Up: 1 Year, Reason: Progress Notes * SIMMONS, YINKADOB:[birth year] (78 yo F)Acc No.[id number]:03/04/2024 PROGRESS NOTES Patient:?LEYLA SIMMONSRICIA Appointment Provider:?Julia prado M.D. :1945???Age:78 Y???Sex:Female D ate:03/04/2024 Address:[address] [place] [address], [id number] Pcp:CHINO VASQUEZ MD Subjective: * Chief Complaints: * ???BD AND LAB FOLLOW UP * HPI: ???New/Follow-up Patient Consult:? LIAT Calvo IS HERE TO DISCUSS HER BMD RESULTS AND WORSENING OSTEOPENIA.? HER T-SCORES AT THE FEMORAL NECK DECREASED FROM -1.9 IN 2018 TO -2.4 IN 2023.? SHE IS CLOSE TO OSTEOPOROSIS.? SHE HAS NO HX OF FRACTURES.? OSTEOPOROSIS WORK UP WAS NORMAL. * ROS:?general:?no?chest pain.?no?palpitations.?no?headache.?no?cough.?no?shortness of breath.?no?fever.?no?unexplained weight loss.?no?nausea/vomiting.?no?change in bowel movements.?no blood in stool.?no?genitourinary complaints.?no?skin complaints.? * Medical History:? 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 Control:?None.?Colonoscopy?2017, 2006.?Bone Density:?01/31/24, 10/30/21, 08/15/17, 07/27/14.? * OB History:?Total pregnancies?3.?Total living children?2.?(s)?2.? * Medications:?TakingPreserVis ion AREDS 2 Probiotic Claritin 10 MG 30 1 ORAL daily Dyrenium 50 MG Capsule 1 capsule Orally Once a day Singulair 5 MG Tablet 1 tablet Orally Once a day Toprol XL 25 MG Tablet Extended Release 24 Hour 1 tablet Orally Once a day Vitamin D 50 MCG (2000 UT) Capsule 1 capsule Orally Once a day Clopidogrel Bisulfate 75 MG Tablet 1 tablet Orally Once a day Rosuvastatin Calcium 5 MG Tablet 1 tablet Orally every other day Pantoprazole Sodium 40 MG Tablet Delayed Release 1 tablet Orally Once a day Atrovent HFA 17 MCG/ACT Aerosol Solution 2 puffs Inhalation Four times a day EpiPen Taking PreserVision AREDS 2 Taking Probiotic Taking Claritin 10 MG 30 1 ORAL daily Taking Dyrenium 50 MG Capsule 1 capsule Orally Once a day Taking Singulair 5 MG Tablet 1 tablet Orally Once a day Taking Toprol XL 25 MG Tablet Extended Release 24 Hour 1 tablet Orally Once a day Taking Vitamin D 50 MCG (2000 UT) Capsule 1 capsule Orally Once a day Taking Clopidogrel Bisulfate 75 MG Tablet 1 tablet Orally Once a day Taking Rosuvastatin Calcium 5 MG Tablet 1 tablet Orally every other day Taking Pantoprazole Sodium 40 MG Tablet Delayed Release 1 tablet Orally Once a day Taking Atrovent HFA 17 MCG/ACT Aerosol Solution 2 puffs Inhalation Four times a day Taking EpiPen DiscontinuedBenefiber - Powder as directed Orally Yuvafem 10 MCG Tablet 1 tablet Vaginal THRICE A WEEK Medication List reviewed and reconciled with the patientDiscontinued Benefiber - Powder as directed Orally Discontinued Yuvafem 10 MCG Tablet 1 tablet Vaginal THRICE A WEEK Medication List reviewed and reconciled with the patient * Allergies:?HECTOR INHIBITORS: A llergyE-MYCIN: AllergyCODEINE: AllergyTETRACYCLINE: AllergyVIOXX: AllergyALBUTEROL: AllergyIODINE: AllergyLOPID: AllergyLipitor: AllergyXopenex: AllergyPulmicort: AllergyMeclizine HCl: AllergyEPINEPHrine: AllergySulfa Antibiotics: AllergyPenicillin: AllergyRelafen: Allergyno[Allergies Verified] Objective: * Vitals:?Ht: 62.25 in, Wt: 16 0 lbs, BMI:29.03Index, BP: 134/84 mm Hg, Temp: 97.3 F. Assessment: * Assessment: 1.?Other specified disorders of bone density and structure, multiple sites - M85.89 (Primary)??? Plan: * Treatment: * Procedure Codes:? * Follow Up:?1 Year * Images: Billing Information: * Visit Code:? * Procedure Codes:? * Sign off status: Completed true * Appointment Provider:?Julia Casarez M.D. Date:?03/04/2024 Generated for Sb correa/Giovanny/Evelyn on:?10/12/2024 06:24 PM EDT History and Physical Notes * HPI (History of Present Illness) Category Sub-Category Detail Notes Category Not es New/Follow-up Patient Consult LIAT Lubna IS HERE TO ESTUARDO KRAMERUSS HER BMD RESULTS AND WORSENING OSTEOPENIA. HER T-SCORES AT THE FEMORAL NECK DECREASED FROM -1.9 IN 2018 TO -2.4 IN 2023. SHE IS CLOSE TO OSTEOPOROSIS. SHE HAS NO HX OF FRACTURES. OSTEOPOROSIS WORK UP WAS NORMAL.
--- OUTSIDE RECORDS SUMMARY | 2024-10-12 18:25 | XMS_ITS | Patient Health Record ---
Author Organization [facility] Address [address] [facility] [address] [facility] [address] [place] [address] Care Team Providers Care Factory Hand Name Role Phone O CHRISTINA COOLEY, [place] Primary Care Provider Julia Adam Unavailable [phone] Allergies Allergen (clinical drug ingredient) Drug/Non Drug [...] Active nabumetone Relafen Unknown Drug Allergy Active Results Component Value Reference Range Notes PDF Report Reviewed date:11/25/2023 02:43:42 PM Interpretation: Performing Lab:[facility] [place], [address], [address], [place], Phone - [phone], Director - [facility] Notes/Report: Clinical Information:Vaginal/Cervical, LMP: Men o [id number] Dates / Results....08/20/19 NIL, Neg HPV Other..............Post Menopausal No. of containers..01 ThinPrep Vial TSH-[id number] Reviewed date:02/13/2024 08:35:01 AM Interpretation: Performing Lab:[facility] [place], [address] [place] [address], Phone - [phone], Director - Juan Notes/Report: Clinical Information:12-14 HOUR FASTING TSH 2.280 0.450-4.500 uIU/mL CBC With Differential/Platel et-[id number] Reviewed date:02/13/2024 08:34:33 AM Interpretation: Performing Lab:[facility] [place], [address] [place] [address], Phone - [phone], Director - Juan Notes/Report: Clinical Information:12-14 HOUR FASTING WBC 4.5 3.4-10.8 x10E3/uL RBC 4.52 3.77-5.28 x10E6/uL Hemoglobin 13.9 11.1-15.9 g/dL Hematocrit 41.3 34.0-46.6 % MCV 91 79-97 fL MCH 30.8 26.6-33.0 pg MCHC 33.7 31.5-35.7 g/dL RDW 13.6 11.7-15.4 % Platelets 198 150-450 x10E3/uL Neutrophils 37 Not Estab. % Lymphs 54 Not Estab. % Monocytes 8 Not Estab. % Eos 0 Not Estab. % Basos 1 Not Estab. % Neutrophils (Absolute) 1.7 1.4-7.0 x10E3/uL Lymphs (Absolute) 2.4 0.7-3.1 x10E3/uL Monocytes(Absolute) 0.4 0.1-0.9 x10E3/uL Eos (Absolute) 0.0 0.0-0.4 x10E3/uL Baso (Absolute) 0.0 0.0-0.2 x10E3/uL Immature Granulocytes 0 Not Estab. % Immature Grans (Abs) 0.0 0.0-0.1 x10E3/uL PTH, Intact-[id number] Reviewed date:02/13/2024 08:35:06 AM Interpretation: Performing Lab:[facility] [place], [address] [place] [address], Phone - [phone], Director - Juan Notes/Report: Clinical Information:12-14 HOUR FASTING PTH, Intact 47 15-65 pg/mL Vitamin D, 29-Dndpncg-[id number] Reviewed date:02/13/2024 08:34:41 AM Interpretation: Performing Lab:[facility] [place], [address] [facility], [place], Phone - [phone], Director - Juan Notes/Report: Clinical Information:12-14 HOUR FASTING Vitamin D, 25-Hydroxy 39.8 30.0-100.0 ng/mL Vitamin D deficiency has been defined by the [place] of Medicine and an Endocrine Society practice guideline as a level of serum 25-OH vitamin D less than 20 ng/mL (1,2). The Endocrine Society went on to further define vitamin D insufficiency as a level between 21 and 29 ng/mL (2). 1. IOM ([place] of Medicine). 2010. Dietary reference intakes for calcium and D. [place]: The National Academies Press. 2. Jessenia MF, Ruben PINEDA, Sabrina HUIZAR, et al. Evaluation, treatment, and prevention of vitamin D deficiency: an Endocrine Society clinical practice guideline. JCEM. 2010; 96(7):1911-30. Comp. Metabolic Panel (14)-[id number] Reviewed date:02/13/2024 08:34:54 AM Interpretation: Performing Lab:[facility] [place], [address], [place], Phone - [phone], Director - Juan Notes/Report: Clinical Information:12-14 HOUR FASTING Glucose 93 70-99 mg/dL BUN 14 8-27 mg/dL Creatinine 0.95 0.57-1.00 mg/dL eGFR 61 >59 mL/min/1.73 BUN/Creatinine Ratio 15 12-28 Sodium 139 134-144 mmol/L Potassium 3.9 3.5-5.2 mmol/L Chloride 102 96-106 mmol/L Carbon Dioxide, Total 24 20-29 mmol/L Calcium 9.0 8.7-10.3 mg/dL Protein, Total 6.6 6.0-8.5 g/dL Albumin 4.1 3.8-4.8 g/dL Globulin, Total 2.5 1.5-4.5 g/dL Bilirubin, Total 0.5 0.0-1.2 mg/dL Alkaline Phosphatase 70 44-121 IU/L AST (SGOT) 17 0-40 IU/L ALT (SGPT) 12 0-32 IU/L PDF Report Reviewed date:02/13/2024 08:34:20 AM Interpretation: Performing Lab:[facility] [place], [address], [place], Phone - [phone], Director - Juan Notes/Report: Clinical Information:12-14 HOUR FASTING [id number] IGP No Culture 30 Plus Reviewed date:11/25/2023 02:43:59 PM Interpretation: Performing Lab:[facility] [place], [address], [address], [place], Phone - [phone], Director - Gio Notes/Report: Clinical Information:Vaginal/Cervical, LMP: Men o [id number] Dates / Results....08/20/19 NIL, Neg HPV Other..............Post Menopausal No. of containers..01 ThinPrep Vial DIAGNOSIS: NEGATIVE FOR INTRAEPITHELIAL LESION OR MALIGNANCY. CELLULAR CHANGES ASSOCIATED WITH ATROPHY ARE PRESENT. Specimen adequacy: Satisfactory for evaluation. Endocervical component may not be distinguished in cases of atrophy. Clinician provided ICD10: Z01.419 N93.0 Performed by: Brandee carrera, Baby Doctor (ASCP) . . Note: The Pap smear is a screening test designed to aid in the detection of premalignant and malignant conditions of the uterine cervix. It is not a diagnostic procedure and should not be used as the sole means of detecting cervical cancer. Both false-positive and false-negative reports do occur. . Test Methodology: This liquid based ThinPrep(R) pap test was screened with the use of an image guided system. HPV Aptima Negative Negative This nucleic acid amplification test detects fourteen high-risk HPV types (16,18,31,33,35,39,45,51,52,56 ,58,59,66,68) without differentiation. HPV Genotype Reflex Criteria not met, HPV Genotype not performed. Reason For Referral No Information Medications Medication SIG (Take, Route, Frequency, Duration) Notes Start Date End Date Status Clopidogrel Bisulfate 75 MG 1 tablet Ora lly Once a day Active Pantoprazole Sodium 40 MG 1 tablet Orall y Once a day Active Rosuvastatin Calcium 5 MG 1 tablet Orall y every other day Active PreserVision AREDS 2 Active EpiPen Active Atrovent HFA 17 MCG/ACT 2 puffs Inhalati on Four times a day Active Claritin 10 MG 1 ORAL daily for -3 04/14/2012 Active Probiotic Active Singulair 5 MG 1 tablet Orally Once a day 04/14/2012 Active Dyrenium 50 MG 1 capsule Orally Onc e a day 04/14/2012 Active Vitamin D 50 MCG (1999 UT) 1 capsule Ora lly Once a day 03/25/2011 Active Toprol XL 25 MG 1 tablet Orally Once a day 04/14/2012 Active Social History Tobacco Use: Social History Observation Description Date Details (start date - stop date) Never Smoker NA - NA Tobacco Use/Smoking Question Answer Notes Are you a nonsmoker Alcohol Screen (Audit-C) Question Answer Notes Did you have a drink containing alcohol in the p ast year? No Points 0 Interpretation Negative Sexual History Question Answer Notes Had sex in the past 12 months (vaginal, oral, or anal)? No Problems Problem Type SNOMED Code ICD Code Onset Dates Problem Status W/U Status Risk Notes Problem Postmenopausal atrophic vaginitis (41633857) Postmenopausal atrophic vaginitis (N95.2) Active confirmed Problem Gynecological examination normal (071376163209696) Encounter for gynecological examination (general) (routine) without abnormal findings (Z01.419) Active confirmed Problem Postcoital bleeding (26712340) Postcoital and contact bleeding (N93.0) Active confirmed Problem Hyperlipidemia (29425585) Other and unspecified hyperlipidemia (272.4) Active confirmed Major Problem Benign essential hypertension (6994158) Essential hypertension, benign (401.1) Active confirmed Major Problem Orthostatic hypotension (46122488) Orthostatic hypotension (458.0) Active confirmed Major Problem Vulvovaginitis (disorder) (90431922) Unspecified vaginitis and vulvovaginitis (616.10) Active confirmed Diag Problem Asthma (disorder) (952037536) Asthma, unspecified, unspecified status (493.90) Active confirmed Major Problem Menopausal symptom (21538410) Symptomatic menopausal or female climacteric states (627.2) Active confirmed Major Problem Postmenopausal atrophic vaginitis (12096675) Postmenopausal atrophic vaginitis (627.3) Active confirmed Diag Problem Disorder of bone and articular cartilage (disorder) (916269874) Disorder of bone and cartilage, unspecified (733.90) Active confirmed Diag Problem Gynecological examination normal (016693901455872) Routine gynecological examination (V72.31) Active confirmed Major Problem Screening for malignant neoplasm of colon (597950911) Special screening for malignant neoplasms, colon (V76.51) Active confirmed Major Vital Signs Heart Rate 82 /min 11/19/2023 Temperature 97.3 degrees Fahrenheit 03/04/2024 Blood pressure diastolic 84 mm Hg 03/04/2024 Height 62.25 in 03/04/2024 Blood pressure systolic 134 mm Hg 03/04/2024 Weight 160 lbs 03/04/2024 BMI 29.03 kg/m2 03/04/2024 Encounters Encounter Location Date Provider Diagnosis [facility] [address] [address] 11/19/2023 Julia Casarez Encounter for gynecological examination (general) (routine) without abnormal findings Z01.419 ; Encounter for screening mammogram for malignant neoplasm of breast Z12.31 ; Postcoital and contact bleeding N93.0 ; Postmenopausal atrophic vaginitis N95.2 ; Personal history of urinary (tract) infections Z87.440 ; Disorder of bone density and structure, 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 and Dense breasts, unspecified R92.[address] [address] 03/04/2024 Julia Casarez Other specified disorders of bone density and structure, multiple sites M85.[address] [address] 11/19/2023 Julia Casarez [place] [address] [address] 11/25/2023 Julia Casarez [facility] [address] [address] 02/06/2024 Julia Casarez Disorder of bone density and structure, 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 Assessments Encounter Date Diagnosis (ICD Code) Assessment Notes Treatment Notes Treatment Clinical Notes Section Notes 11/19/2023 Encounter for gynecological examination (general) (routine) without abnormal findings (ICD-10 - Z01.419) PAP TEST WITH HPV TYPING WAS OBTAINED. 02/06/2024 Disorder of bone density and structure, unspecified (ICD-10 - M85.9) 03/04/2024 Other specified disorders of bone density and structure, multiple sites (ICD-10 - M85.89) DISCUSSED PAT'S BMD RESULTS AND STEADY DECREASE IN T-SCORES. DISCUSSED OSTEOPENIA AND ITS NEGATIVE EFFECTS ON HER HEALTH. ADEQUATE CALCIUM AND VIT D. WEIGHT BEARING EXERCISES. REPEAT BMD IN 2025. 11/19/2023 Encounter for screening mammogram for malignant neoplasm of breast (ICD-10 - Z12.31) REGULAR MAMMOGRAMS AND SBE'S WERE RECOMMENDED. 11/19/2023 Postcoital and contact bleeding (ICD-10 - N93.0) DISCUSSED COMMON CAUSES OF POSTCOITAL BLEEDING INCLUDING VAGINAL AND VULVAR ATROPHY. ADVISED PAT TO COME AND SEE US WHEN SHE HAS POSTCOITAL BLEEDING SO SHE CAN BE PROPERLY EVALUATED. I NEED TO MAKE SURE BLEEDING IS NOT INTRAUTERINE. IF IT IS, SHE WILL NEED HSONO AND EMB. 11/19/2023 Postmenopausal atrophic vaginitis (ICD-10 - N95.2) DISCUSSED FINDINGS, DX AND TX OPTIONS. ADVISED PAT TO TRY YUVAFEM AGAIN. DOUBT THAT HER GLOBAL TEMPORARY AMNESIA AND MIGRAINE HUIZAR'S WERE DUE TO YUVAFEM. BENEFITS AND RISKS OF INTRAVAGINAL ESTROGEN WERE DISCUSSED. RX AND DETAILED INSTRUCTIONS WERE GIVEN. 11/19/2023 Personal history of urinary (tract) infections (ICD-10 - Z87.440) D/C MACRODANTIN. TRY UQUORA. ADVISED PAT TO READ UP ON IT. SHE HAS NO CONTRAINDICATIONS AND ACCEPTS RISKS. 11/19/2023 Disorder of bone density and structure, unspecified (ICD-10 - M85.9) DISCUSSED HER LAST BMD AND OSTEOPENIA AND ITS IMPACT ON HER HEALTH. ADEQUATE CALCIUM AND VIT D. WEIGHT BEARING EXERCISES. REPEAT BMD THIS YEAR. 11/19/2023 Dense breasts, unspecified (ICD-10 - R92.30) DISCUSSED DENSE BREASTS ON MAMMOGRAM AND ITS IMPLICATIONS. 3D MAMMOGRAMS WERE RECOMMENDED. Plan Of Treatment Pending Test Test Name Order Date MAMMOGRAM, SCREENING 08/21/2021 MAMMOGRAM, SCREENING 11/19/2023 MAMMOGRAM, SCREENING 08/11/2015 BONE DENSITY 11/19/2023 BONE DENSITY 08/21/2021 MM Digital Mammo Screening 08/21/2021 MM Digital Mammo Screening 11/19/2023 Insurance Providers Payer Name Payer Address Payer Phone Subscriber Number Group Number Insured Name Patient Relationship to Insured Coverage Start Date Coverage End Date BCBS MEDICARE PPO [address] [place], [place] [id number] [id number] YINKA SIMMONS Self - patient is the insured Medical (General) History Medical History History ICD Code Postmenopausal atrophic vaginitis N95.2 Disorder of bone density and structure, 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 Other asthma J45.998 Other hyperlipidemia E78.4 Essential (primary) hypertension I10 Orthostatic hypotension I95.1 Menopausal and female climacteric states N95.1 Basal Ganshon Stroke 09/2016 Inconclusive mammogram R92.2 Other specified disorders of bone densit y and structure, multiple sites M85.89 Surgical History Surgery Date(Month/Year) x 2 Colonoscopy Tonsillectomy/Adnoidectomy Almyra Teeth Hospitalization History Reason Date(Month/Year) See Surgical Hx
--- OUTSIDE RECORDS SUMMARY | 2024-10-12 18:25 | XMS_ITS ---
Author Organization [facility] Address [address] [place] [address] Care Team Providers Care Finish Painter Name Role Phone Miri VASQUEZ MD, [place] Primary Care Provider Julia Adam Unavailable [phone] Results Component Value Reference Range Notes TSH-[id number] Reviewed date:02/13/2024 08:35:01 AM Interpretation: Performing Lab:[facility] [place], [address] [place] [address], Phone - [phone], Director - MDJodry Notes/Report: Clinical Information:12-14 HOUR FASTING TSH 2.280 0.450-4.500 uIU/mL CBC With Differential/Platel et-[id number] Reviewed date:02/13/2024 08:34:33 AM Interpretation: Performing Lab:[facility] [place], [address] [place] [address], Phone - [phone], Director - MDJodry Notes/Report: Clinical Information:12-14 HOUR FASTING WBC 4.5 [...] Immature Grans (Abs) 0.0 0.0-0.1 x10E3/uL PTH, Intact-[id number] Reviewed date:02/13/2024 08:35:06 AM Interpretation: Performing Lab:[facility] [place], [address] [facility], [place], Phone - [phone], Director - Juan Notes/Report: Clinical Information:12-14 HOUR FASTING PTH, Intact 47 15-65 pg/mL Vitamin D, 76-Fmjgwik-[id number] Reviewed date:02/13/2024 08:34:41 AM Interpretation: Performing Lab:[facility] [place], [address] [facility], [place], Phone - [phone], Director - Juan Notes/Report: Clinical Information:12-14 HOUR FASTING Vitamin D, 25-Hydroxy 39.8 30.0-100.0 ng/mL Vitamin D deficiency has been defined by the [place] of Medicine and an Endocrine Society practice guideline as a level of serum 25-OH vitamin D less than 20 ng/mL (1,2). The Endocrine Society went on to further define vitamin D insufficiency as a level between 21 and 29 ng/mL (2). 1. IOM ([place] of Medicine). 2010. Dietary reference intakes for calcium and D. [place]: The National Academies Press. 2. Jessenia MF, Ruben [place], Sabrina HUIZAR, et al. Evaluation, treatment, and prevention of vitamin D deficiency: an Endocrine Society clinical practice guideline. JCEM. 2010; 96(7):1911-30. Comp. Metabolic Panel (14)-3 Reviewed date:02/13/2024 08:34:54 AM Interpretation: Performing Lab:[facility] [place], [address] [facility], [place], Phone - [phone], Director - Juan Notes/Report: Clinical Information:12-14 HOUR [...] Report Reviewed date:02/13/2024 08:34:20 AM Interpretation: Performing Lab:[facility], [address] [place] [address], [place], Phone - [phone], Director - Juan Notes/Report: Clinical Information:12-14 HOUR FASTING REASON FOR VISIT OSTEO WORK UP Encounters Encounter Location Date Provider Diagnosis [address] [address] 02/06/2024 Julia Casarez Disorder of bone density and structure, 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 Assessments Encounter Date Diagnosis (ICD Code) Assessment Notes Treatment Notes Treatment Clinical Notes Section Notes 02/06/2024 Disorder of bone density and structure, unspecified (ICD-10 - M85.9) Plan Of Treatment No Information Progress Notes * YINKA SIMMONSDOB:[birth year] (78 yo F)Acc No.[id number]:02/06/2024 Patient:?LEYLA SIMMONSRICIA :1945???Age:78 Y???Sex:Female Address:[address] [place] [address], [address] Subjective: * Chief Complaints: * ???OSTEO WORK UP * Medical History:? * Surgical History:? * Hospitalization/Major Diagno stic Procedure:? * Medications:? Objective: * Vitals:? * Physical Examination:? Assessment: * Assessment: 1.?Disorder of bone density and structure, unspecified - M85.9??? Plan: * Treatment: * Procedure Codes:? * true * Date:? Generated for Sb correa/Giovanny/Evelyn on:?10/12/2024 06:24 PM EDT
--- OUTSIDE RECORDS SUMMARY | 2024-10-12 18:25 | XMS_ITS | Clinical Summary ---
Author Organization [facility] Address [address] [place] [address] Care Team Providers Care Fiberglass Boat Finisher Name Role Phone Unavailable Primary Care Provider Unavailabl e Social History Tobacco Use Types Packs/Day Years Used Date Smoking Tobacco: Never Assessed Comments Unknown Sex and Gender Information Value Date Recorded Sex Assigned at Not on file Legal Sex Female 2:56 PM EST Gender Identity Not on file Sexual Orientation Not on file Plan of Treatment Health Maintenance Due Date Last Done Comments DTaP,Tdap,and Td Vaccines (1 - Tdap) 09/11/1963 Pneumococcal Vaccine: 50+ Ye ars (1 of 1 - PCV) 1994 Zoster Vaccines (1 of 2) 1994 RSV Immunization Adult Patie nts (1 - 1-dose 75+ series) 09/11/2019 COVID-19 Vaccine ( - 2023-2 5 season) 2024 Influenza Vaccine (Season Ended) 2025 HIB Vaccines Aged Out No longer eligi ble based on patient's age to complete this topic HPV Vaccines Aged Out No longer eligi ble based on patient's age to complete this topic Hepatitis A Vaccines Aged Out No long er eligible based on patient's age to complete this topic Hepatitis B Vaccines Aged Out No long er eligible based on patient's age to complete this topic IPV Vaccines Aged Out No longer eligi ble based on patient's age to complete this topic MMR Vaccines Aged Out No longer eligi ble based on patient's age to complete this topic Meningococcal ACWY Vaccine Aged Out N o longer eligible based on patient's age to complete this topic Meningococcal B Vaccine Aged Out No l onger eligible based on patient's age to complete this topic RSV Immunization Patients Un kelly 20 months Aged Out No longer eligible b ased on patient's age to complete this topic Varicella Vaccines Aged Out No longer eligible based on patient's age to complete this topic Advance Directives Documents on File Type Date Recorded Patient [employer] Principal Expl anation Health Care Decision (hx) 10/24/2016 AD SHANTI DIRECTIVE
--- OUTSIDE RECORDS SUMMARY | 2024-10-12 18:25 | XMS_ITS ---
Author Organization [facility] [employer] Address [address] [facility] [facility] [address] [place] [address] Care Team Providers Care Side Stitching Machine Operator Name Role Phone Miri VASQUEZ MD, [place] Primary Care Provider Julia Adam [phone] REASON FOR VISIT PAP RESULTS Encounters Encounter Location Date Provider Diagnosis [facility] [address] [facility] [address] [place] [address] 11/25/2023 Julia Casarez Plan Of Treatment No Information Progress Notes * LEYLA SIMMONSRYDOB:[birth year] (78 yo F)Acc No.[id number]:11/25/2023 Patient:?YINKA SIMMONS :1945???Age:78 Y???Sex:Female Address:[address] [place] [address], [place], [address] * true * Date:? Generated for Lennyi sunny/Giovanny/eTransmitting on:?10/12/2024 06:24 PM EDT
== END 2024-10-12 16:07 | disposition home or self-care (01) ==
LOC: HO.HMCFM 15:06
PROVIDERS: PCP Internal Medicine; Visit Provider Internal Medicine
DX: F41.9 Anxiety disorder, unspecified (principal); R53.83 Other fatigue; I63.9 Cerebral infarction, unspecified; J45.20 Mild intermittent asthma, uncomplicated; G47.33 Obstructive sleep apnea (adult) (pediatric)

== ENCOUNTER → 2024-10-12 15:06 | Outpatient (BNVA) | payer MEDICARE, SELFPAY | PROVIDERS: PCP Internal Medicine; Visit Provider Internal Medicine | DX: F41.9 Anxiety disorder, unspecified (principal); R53.83 Other fatigue; J45.20 Mild intermittent asthma, uncomplicated; G47.33 Obstructive sleep apnea (adult) (pediatric); I10 Essential (primary) hypertension; E78.5 Hyperlipidemia, unspecified; K58.9 Irritable bowel syndrome, unspecified; M19.90 Unspecified osteoarthritis, unspecified site; Z86.73 Personal history of transient ischemic attack (TIA), and cerebral infarction without residual deficits; Z87.440 Personal history of urinary (tract) infections; Z79.899 Other long term (current) drug therapy | CPT/HCPCS: 99212 ==

== ENCOUNTER 2024-10-13 07:33 | Outpatient (REF) | payer MEDICARE, SELFPAY ==
--- OUTSIDE RECORDS SUMMARY | 2024-10-13 07:35 | XMS_ITS ---
Author Organization [employer] [facility] Address [address] [place] [address] Care Team Providers Care Bushwalking Guide Name Role Phone Miri VASQUEZ MD, [place] Primary Care Provider Julia Adam Unavailable [phone] Allergies Allergen (clinical drug ingredient) Drug/Non Drug [...] e a day 04/14/2012 Active Vital Signs Height 62.25 in 03/04/2024 Weight 160 lbs 03/04/2024 BMI 29.03 kg/m2 03/04/2024 Blood pressure systolic 134 mm Hg 03/04/20 24 Blood pressure diastolic 84 mm Hg 024 Temperature 97.3 degrees Fahrenheit 03/04/20 24 Encounters Encounter Location Date Provider Diagnosis [address] [place] [address] 03/04/2024 Julia Casarez Other specified disorders of [...] Up: 1 Year, Reason: Progress Notes * IRIS YINKADOB:[birth year] (78 yo F)Acc No.[id number]:03/04/2024 PROGRESS NOTES Patient:?LEYLA SIMMONSRICIA Appointment Provider:?Julia prado M.D. :1945???Age:78 Y???Sex:Female D ate:03/04/2024 Address:[address] [place] [address], [facility] Pcp:[place] VASQUEZ MD Subjective: * Chief Complaints: [...] stool.?no?genitourinary complaints.?no?skin complaints.? * Medical History:? * Field Services Director History:?/ Para?3/2.?Sexual activity?not currently sexually active.?Last Pap Smear:?11/19/23 NIL, NEG HPV, 08/20/19 NIL, NEG HPV, 04/28/13, neg.?Mammogram:?01/31/24 < 50% density, 10/30/21 < 50% density, 09/22/20 50-75% density,08/26/19 < 50% density, 08/18/18 50-75% density, 06/29/15, < 50% density.?LMP and menses?Orrum.? Control:?None.?Colonoscopy?2017, 2006.?Bone Density:?01/31/24, 10/30/21, 08/15/17, 07/27/14.? * [...] Casarez M.D. Date:?03/04/2024 Generated for Sb correa/Giovanny/Evelyn on:?10/13/2024 07:35 AM EDT History and Physical Notes * HPI [...]
--- OUTSIDE RECORDS SUMMARY | 2024-10-13 07:35 | XMS_ITS | Clinical Summary ---
Author Organization [facility] Address [address] [place] [address] Care Team Providers Care Piping Engineer Name Role Phone Unavailable Primary Care Provider [...] Documents on File Type Date Recorded Patient Automat Watcher Expl anation Health Care Decision (hx) 10/24/2016 AD SHANTI DIRECTIVE
--- OUTSIDE RECORDS SUMMARY | 2024-10-13 07:35 | XMS_ITS ---
Author Organization [facility] Address [address] [facility] [address] [place] [address] Care Team Providers Care Mercury Washer Name Role Phone Miri VASQUEZ MD, [place]INO Primary Care Provider Julia Adam [phone] REASON FOR VISIT PAP RESULTS Encounters Encounter Location Date Provider Diagnosis [facility] [address] [facility] [address] [place] [address] 11/25/2023 Julia Casarez Plan Of Treatment No Information Progress Notes * LEYLA SIMMONSRYDOB:[birth year] (78 yo F)Acc No.[id number]:11/25/2023 Patient:?YINKA SIMMONS :1945???Age:78 Y???Sex:Female Address:[address] [place] [address], [place], [address] * true * Date:? Generated for Sb correa/Giovanny/eTransmitting on:?10/13/2024 07:35 AM EDT
--- OUTSIDE RECORDS SUMMARY | 2024-10-13 07:35 | XMS_ITS ---
Author Organization [facility] Address [address] [place] [address] Care Team Providers Care Charge Account Authorizer Name Role Phone Miri VASQUEZ MD, [place] Primary Care Provider Julia Adam Unavailable [phone] Results Component Value Reference Range Notes [id number] Reviewed date:02/13/2024 08:35:01 AM Interpretation: Performing Lab:[facility], [address] [place] [address], Phone - [phone], Director - MDJodry Notes/Report: Clinical Information:12-14 HOUR FASTING TSH 2.280 0.450-4.500 uIU/mL CBC With Differential/Platel et-[id number] Reviewed date:02/13/2024 08:34:33 AM Interpretation: Performing Lab:[facility], [address] [place] [address], Phone - [phone], Director - MDJodry Notes/Report: Clinical Information:12-14 HOUR [...] Immature Grans (Abs) 0.0 0.0-0.1 x10E3/uL PTH, Intact-510980 Reviewed date:02/13/2024 08:35:06 AM Interpretation: Performing Lab:[facility], [address] [facility], [place], Phone - [phone], Director - Juan Notes/Report: Clinical Information:12-14 HOUR FASTING PTH, Intact 47 15-65 pg/mL Vitamin D, 14-Chudzam-298519 Reviewed date:02/13/2024 08:34:41 AM Interpretation: Performing Lab:[facility], [address] [facility], [place], Phone - [phone], Director - Juan Notes/Report: Clinical Information:12-14 HOUR FASTING Vitamin D, 25-Hydroxy 39.8 30.0-100.0 ng/mL Vitamin D deficiency has been defined by the [place] of Medicine and an Endocrine Society practice guideline as a level of serum 25-OH vitamin D less than 20 ng/mL (1,2). The Endocrine Society went on to further define vitamin D insufficiency as a level between 21 and 29 ng/mL (2). 1. IOM ([place] of Medicine). 2010. Dietary reference intakes for calcium and D. [place]: The National Academies Press. 2. Jessenia MF, Ruben NC, Sabrina HUIZAR, et al. Evaluation, treatment, and prevention of vitamin D deficiency: an Endocrine Society clinical practice guideline. JCEM. 2010; 96(7):1911-30. Comp. Metabolic Panel (14)-3 Reviewed date:02/13/2024 08:34:54 AM Interpretation: Performing Lab:[facility], [address] 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 * Surgical History:? * Hospitalization/Major Diagno stic Procedure:? * Medications:? Objective: * Vitals:? * Physical Examination:? Assessment: * Assessment: 1.?Disorder of bone density and structure, unspecified - M85.9??? Plan: * Treatment: * Procedure Codes:? * true * Date:? Generated for Sb correa/Giovanny/Evelyn on:?10/13/2024 07:35 AM EDT
--- OUTSIDE RECORDS SUMMARY | 2024-10-13 07:36 | XMS_ITS | Patient Health Record ---
Author Organization [facility] Address [address] [place] [address] Care Team Providers Care Founder Ceo & President Name Role Phone O CHRISTINA COOLEY, CHINO Primary Care Provider Julia Adam Unavailable [phone] Allergies Allergen (clinical drug ingredient) Drug/Non Drug [...] Active Results Component Value Reference Range Notes [id number] IGP No Culture 30 Plus Reviewed date:11/25/2023 02:43:59 PM Interpretation: Performing Lab:[facility] [place], [address], [address], [place], Phone - [phone], Director - [facility] Notes/Report: Clinical Information:Vaginal/Cervical, LMP: Men o [id number] Dates / Results....08/20/19 NIL, Neg HPV Other..............Post Menopausal No. of containers..01 ThinPrep Vial DIAGNOSIS: NEGATIVE FOR INTRAEPITHELIAL LESION OR MALIGNANCY. CELLULAR CHANGES ASSOCIATED WITH ATROPHY ARE PRESENT. Specimen adequacy: Satisfactory for evaluation. Endocervical component may not be distinguished in cases of atrophy. Clinician provided ICD10: Z01.419 N93.0 Performed by: Brandee carrera, Tool Trouble Shooter ([facility]) . . Note: The Pap smear is [...] Criteria not met, HPV Genotype not performed. [id number] Reviewed date:02/13/2024 08:35:01 AM Interpretation: Performing Lab:[facility], [address] [place] [address], Phone - [phone], Director - [facility] [employer] [facility] Notes/Report: Clinical Information:12-14 HOUR FASTING TSH 2.280 0.450-4.500 uIU/mL CBC With Differential/Platel et-[id number] Reviewed date:02/13/2024 08:34:33 AM Interpretation: Performing Lab:[facility] [place], [address] [place] [address], Phone - [phone], Director - MDJoy Notes/Report: Clinical Information:12-14 HOUR FASTING WBC 4.5 [...] Immature Grans (Abs) 0.0 0.0-0.1 x10E3/uL PTH, Intact-108334 Reviewed date:02/13/2024 08:35:06 AM Interpretation: Performing Lab:[facility], [address] [place] [address], Phone - [phone], Director - Juan Notes/Report: Clinical Information:12-14 HOUR FASTING PTH, Intact 47 15-65 pg/mL Vitamin D, 71-Lqzwgwz-604506 Reviewed date:02/13/2024 08:34:41 AM Interpretation: Performing Lab:[facility], [address] [place] [address], Phone - [phone], Director - Juan Notes/Report: Clinical Information:12-14 HOUR FASTING Vitamin D, 25-Hydroxy 39.8 30.0-100.0 ng/mL Vitamin D deficiency has been defined by the [place] of Medicine and an Endocrine Society practice guideline as a level of serum 25-OH vitamin D less than 20 ng/mL (1,2). The Endocrine Society went on to further define vitamin D insufficiency as a level between 21 and 29 ng/mL (2). 1. IOM ([place] of [employer]). 2010. Dietary reference intakes for calcium and D. [place]: The National Academies Press. 2. Jessenia MF, Ruben NC, Lynette-Venkat HUIZAR, et al. Evaluation, treatment, and prevention of vitamin D deficiency: an Endocrine Society clinical practice guideline. JCEM. 2010; 96(7):1911-30. Comp. Metabolic Panel (14)-3 59000 Reviewed date:02/13/2024 08:34:54 AM Interpretation: Performing Lab:[facility], Phone - [phone], Director - Tachoronn Notes/Report: Clinical Information:12-14 HOUR FASTING Glucose 93 [...] date:02/13/2024 08:34:20 AM Interpretation: Performing Lab:[facility], [address] [facility], Phone - [phone], Director - [facility] Notes/Report: Clinical Information:12-14 HOUR FASTING PDF Report Reviewed date:11/25/2023 02:43:42 PM Interpretation: Performing Lab:[facility], [address], [address], [place], Phone - [phone], Director - [facility] Notes/Report: Clinical Information:Vaginal/Cervical, LMP: Men o [id number] Dates / Results....08/20/19 NIL, Neg HPV Other..............Post Menopausal No. of containers..01 ThinPrep Vial Reason For Referral No Information Medications Medication [...] Status Risk Notes Problem Postmenopausal atrophic vaginitis (21992437) Postmenopausal atrophic vaginitis (N95.2) Active confirmed Problem Gynecological examination normal (244924898980223) Encounter for gynecological examination (general) (routine) without abnormal findings (Z01.419) Active confirmed Problem Postcoital bleeding (50871894) Postcoital and contact bleeding (N93.0) Active confirmed Problem Hyperlipidemia (02850537) Other and unspecified hyperlipidemia (272.4) Active confirmed Major Problem Benign essential hypertension (2641111) Essential hypertension, benign (401.1) Active confirmed Major Problem Orthostatic hypotension (76031479) Orthostatic hypotension (458.0) Active confirmed Major Problem Vulvovaginitis (disorder) (21490509) Unspecified vaginitis and vulvovaginitis (616.10) Active confirmed Diag Problem Asthma (disorder) (533877692) Asthma, unspecified, unspecified status (493.90) Active confirmed Major Problem Menopausal symptom (76415142) Symptomatic menopausal or female climacteric states (627.2) Active confirmed Major Problem Postmenopausal atrophic vaginitis (08666668) Postmenopausal atrophic vaginitis (627.3) Active confirmed Diag Problem Disorder of bone and articular cartilage (disorder) (089375718) Disorder of bone and cartilage, unspecified (733.90) Active confirmed Diag Problem Gynecological examination normal (242894515657965) Routine gynecological examination (V72.31) Active confirmed Major Problem Screening for malignant neoplasm of colon (406969668) Special screening for malignant neoplasms, colon (V76.51) Active confirmed Major Vital Signs Heart Rate 82 /min 11/19/2023 Temperature 97.3 degrees Fahrenheit 03/04/2024 Blood pressure diastolic 84 mm Hg 03/04/2024 Height 62.25 in 03/04/2024 Blood pressure systolic 134 mm Hg 03/04/2024 Weight 160 lbs 03/04/2024 BMI 29.03 kg/m2 03/04/2024 Encounters Encounter Location Date Provider Diagnosis Total [address] [address] 11/19/2023 Julia Casarez Encounter for gynecological examination (general) (routine) without abnormal findings Z01.419 ; Encounter for screening mammogram for malignant neoplasm of breast Z12.31 ; Postcoital and contact bleeding N93.0 ; Postmenopausal atrophic vaginitis N95.2 ; Personal history of urinary (tract) infections Z87.440 ; Disorder of bone density and structure, 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 and Dense breasts, unspecified R92.[address] [address] 03/04/2024 Julia Casarez Other specified disorders of bone density and structure, multiple sites M85.[address] [address] 11/19/2023 Julia Casarez Total [address] [address] 11/25/2023 Julia Casarez Total [address] [address] 02/06/2024 Julia Casarez Disorder of bone density [...] End Date BCBS MEDICARE PPO [address] [place], [place] [id number] YINKA SIMMONS Self - patient is the [...] History Surgery Date(Month/Year) x 2 Colonoscopy Tonsillectomy/Adnoidectomy [place] [facility] Hospitalization History Reason Date(Month/Year) See Surgical Hx
[2024-10-13 11:23] LABS: MANUAL DIFF FLAG NO
[2024-10-13 11:30] LABS: Basophils Percent Auto 0.7 % (0-2); Eosinophils Percent Auto 0.7 % (0-4); Hematocrit 42.1 % (37.0-47.0); Hemoglobin 14.1 g/dl (12.0-16.0); Imm Gran Abs Auto 0.01 X10*3/uL (0.00-0.03); Imm Gran Pct Auto 0.2 % (0.0-0.4); Lymphocytes Absolute Auto 2.2 X10*3/uL (1.2-4.9); Lymphocytes Percent Auto 51.4 % (20-40); Mean Corpuscular HGB Conc 33.5 g/dl (31.0-35.0); Mean Corpuscular Hemoglobin 30.1 pg (27.0-33.0); Mean Corpuscular Volume 89.8 fL (80.0-98.0); Mean Platelet Volume 10.3 fL (9.4-12.3); Monocytes Absolute Auto 0.4 X10*3/uL (0.1-1.2); Monocytes Percent Auto 9.7 % (2-11); Neutrophils Absolute Auto 1.6 x10*3/uL (2.0-8.3); Neutrophils Percent Auto 37.3 % (45-73); Platelet Count 209 X10*3/uL (160-400); Red Blood Count 4.69 X10*6/uL (4.20-5.50); Red Cell Distribution Width 15.1 % (11.0-16.0); White Blood Count 4.3 X10*3/uL (4.8-10.8)
[2024-10-13 11:49] LABS: Appearance Urine Clear; Color Urine Yellow; Glucose Urine UA Negative (Negative); Leukocyte Esterase Urine Negative (Negative); Nitrite Urine Negative (Negative); PH 6.5 (5.0-9.0); Urine Blood Negative (Negative); Urine Ketones Negative (Negative); Urine Protein Negative (Neg-Trace)
[2024-10-13 12:00] LABS: Alanine Aminotransferase 23 U/L (0-31); Albumin Level 4.2 g/dL (3.5-5.0); Alkaline Phosphatase 55 U/L (39-117); Anion Gap 14 (12-20); Aspartate Amino Transferase 30 U/L (5-31); Bilirubin Total 0.6 mg/dL (0.0-1.0); Blood Urea Nitrogen 17 mg/dL (9-16); Calcium 9.3 mg/dL (8.4-10.2); Carbon Dioxide 26 mmol/L (22-29); Chloride 105 mmol/L (96-108); Cholesterol 201 mg/dL (<200); Estimated Glomerular Filt Rate 59; Glucose Random 73 mg/dL (60-115); HDL Cholesterol 62 mg/dL (>40); LDL Cholesterol Calculated 90 mg/dL (<100); Potassium 3.7 mmol/L (3.3-5.1); Sodium 141 mmol/L (135-145); Total Protein 7.3 g/dL (6.5-8.0); Triglycerides 247 mg/dL (<150)
[2024-10-13 12:10] LABS: Folate 13.4 ng/mL (> or = 4.0); Vitamin B12 571 pg/mL (200-900)
[2024-10-13 12:21] LABS: TSH reflex Free T4 1.75 uIU/mL (0.32-4.0)
== END 2024-10-13 07:34 | disposition home or self-care (01) ==
LOC: HO.WFDLDS 07:33
PROVIDERS: Visit Provider Internal Medicine
DX: K21.9 Gastro-esophageal reflux disease without esophagitis (principal); K58.9 Irritable bowel syndrome, unspecified; E78.2 Mixed hyperlipidemia; R53.83 Other fatigue; F41.9 Anxiety disorder, unspecified
CPT/HCPCS: 36415; 80053; 80061; 81003; 82607; 82746; 84443; 85025

== ENCOUNTER 2024-11-15 07:40 | Outpatient (REF) | payer MEDICARE, SELFPAY ==
--- OUTSIDE RECORDS SUMMARY | 2024-11-15 07:43 | XMS_ITS | Clinical Summary ---
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
--- OUTSIDE RECORDS SUMMARY | 2024-11-15 07:43 | XMS_ITS | Patient Health Record ---
Author Organization [facility] Address [address] [place] [address] Care Team Providers Care Boiler Helper Name Role Phone CHINO BURDICK MD Primary Care Provider Julia Adam Unavailable [phone] Allergies Allergen (clinical drug ingredient) Drug/Non Drug [...] Value Reference Range Notes PDF Report Reviewed date:02/13/2024 08:34:20 AM Interpretation: Performing Lab:[facility], [address] [facility], [place], Phone - [phone], Director - Juan Notes/Report: Clinical Information:12-14 HOUR FASTING [id number] IGP No Culture 30 Plus Reviewed date:11/25/2023 02:43:59 PM Interpretation: Performing Lab:[facility], [address], [place], Phone - [phone], Director - Gio Notes/Report: Clinical Information:Vaginal/Cervical, LMP: Men o [id number] Dates / Results....08/20/19 NIL, Neg HPV Other..............Post Menopausal No. of containers..01 ThinPrep Vial DIAGNOSIS: NEGATIVE FOR INTRAEPITHELIAL LESION OR MALIGNANCY. CELLULAR CHANGES ASSOCIATED WITH ATROPHY ARE PRESENT. Specimen adequacy: Satisfactory for evaluation. Endocervical component may not be distinguished in cases of atrophy. Clinician provided ICD10: Z01.419 N93.0 Performed by: Brandee carrera, Proofsheet Corrector (ASCP) . . Note: The Pap smear [...] Criteria not met, HPV Genotype not performed. PDF Report Reviewed date:11/25/2023 02:43:42 PM Interpretation: Performing Lab:[facility], [address], [address], [place], Phone - [phone], Director - Gio Notes/Report: Clinical Information:Vaginal/Cervical, LMP: Men o [id number] Dates / Results....08/20/19 NIL, Neg HPV Other..............Post Menopausal No. of containers..01 ThinPrep Vial [id number] Reviewed date:02/13/2024 08:35:01 AM Interpretation: Performing Lab:[facility], [address] [facility], Phone - [phone], Director - Juan Notes/Report: Clinical Information:12-14 HOUR FASTING TSH 2.280 0.450-4.500 uIU/mL CBC With Differential/Platel et-454130 Reviewed date:02/13/2024 08:34:33 AM Interpretation: Performing Lab:[facility], [address] [place] [address], Phone - [phone], Director - Juan Notes/Report: Clinical Information:12-14 HOUR [...] Immature Grans (Abs) 0.0 0.0-0.1 x10E3/uL PTH, Intact-879665 Reviewed date:02/13/2024 08:35:06 AM Interpretation: Performing Lab:[facility], [address] [place] [address], Phone - [phone], Director - Juan Notes/Report: Clinical Information:12-14 HOUR FASTING PTH, Intact 47 15-65 pg/mL Vitamin D, 28-Kwyzigv-583393 Reviewed date:02/13/2024 08:34:41 AM Interpretation: Performing Lab:[facility] [address] [place] [address], Phone - [phone], Director - Juan Notes/Report: Clinical Information:12-14 HOUR FASTING Vitamin D, 25-Hydroxy 39.8 30.0-100.0 ng/mL Vitamin D deficiency has been defined by the [place] of Medicine and an Endocrine Society practice guideline as a level of serum 25-OH vitamin D less than 20 ng/mL (1,2). The Endocrine Society went on to further define vitamin D insufficiency as a level between 21 and 29 ng/mL (2). 1. IOM ([place] of [employer]). 2010. Dietary reference intakes for calcium and D. [place]: The National Academies Press. 2. Jessenia MF, Ruben PINEDA, Sabrina HUIZAR, et al. Evaluation, treatment, and prevention of vitamin D deficiency: an Endocrine Society clinical practice guideline. JCEM. 2010; 96(0):1911-30. Comp. Metabolic Panel (14)-3 Reviewed date:02/13/2024 08:34:54 AM Interpretation: Performing Lab:[facility], [address] [facility], [place], Phone - [phone], Director - Juan Notes/Report: Clinical Information:12-14 HOUR [...] 0-40 IU/L ALT (SGPT) 12 0-32 IU/L Reason For Referral No Information Medications Medication [...] Status Risk Notes Problem Postmenopausal atrophic vaginitis (46595491) Postmenopausal atrophic vaginitis (N95.2) Active confirmed Problem Gynecological examination normal (962879785548422) Encounter for gynecological examination (general) (routine) without abnormal findings (Z01.419) Active confirmed Problem Postcoital bleeding (87057816) Postcoital and contact bleeding (N93.0) Active confirmed Problem Hyperlipidemia (23156272) Other and unspecified hyperlipidemia (272.4) Active confirmed Major Problem Benign essential hypertension (7279966) Essential hypertension, benign (401.1) Active confirmed Major Problem Orthostatic hypotension (45599825) Orthostatic hypotension (458.0) Active confirmed Major Problem Vulvovaginitis (disorder) (53964439) Unspecified vaginitis and vulvovaginitis (616.10) Active confirmed Diag Problem Asthma (disorder) (980000566) Asthma, unspecified, unspecified status (493.90) Active confirmed Major Problem Menopausal symptom (54568004) Symptomatic menopausal or female climacteric states (627.2) Active confirmed Major Problem Postmenopausal atrophic vaginitis (28739899) Postmenopausal atrophic vaginitis (627.3) Active confirmed Diag Problem Disorder of bone and articular cartilage (disorder) (456548583) Disorder of bone and cartilage, unspecified (733.90) Active confirmed Diag Problem Gynecological examination normal (000387206462117) Routine gynecological examination (V72.31) Active confirmed Major Problem Screening for malignant neoplasm of colon (848319841) Special screening for malignant neoplasms, colon (V76.51) Active confirmed Major Vital Signs Heart Rate 82 /min 11/19/2023 Temperature 97.3 degrees Fahrenheit 03/04/2024 Blood pressure diastolic 84 mm Hg 03/04/2024 Height 62.25 in 03/04/2024 Blood pressure systolic 134 mm Hg 03/04/2024 Weight 160 lbs 03/04/2024 BMI 29.03 kg/m2 03/04/2024 Encounters Encounter Location Date Provider Diagnosis Total [address] [address] 11/19/2023 Julia Casarez Encounter for gynecological examination (general) (routine) without abnormal findings Z01.419 ; Encounter for screening mammogram for malignant neoplasm of breast Z12.31 ; Postcoital and contact bleeding N93.0 ; Postmenopausal atrophic vaginitis N95.2 ; Personal history of urinary (tract) infections Z87.440 ; Disorder of bone density and structure, 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 and Dense breasts, unspecified R92.[address] [address] 03/04/2024 Julia Casraez Other specified disorders of bone density and structure, multiple sites M85.[address] [address] 11/19/2023 Julia Casarez Total [address] [address] 11/25/2023 Julia Casarez Total [address] [address] 02/06/2024 Julia Casarez Disorder of bone density [...] End Date BCBS MEDICARE PPO [address] [place], [place] [id number] [phone] [id number] YINKA SIMMONS Self - patient is the [...] History Surgery Date(Month/Year) x 2 Colonoscopy Tonsillectomy/Adnoidectomy [place] [facility] Hospitalization History Reason Date(Month/Year) See Surgical Hx
[2024-11-15 11:00] LABS: MANUAL DIFF FLAG NO
[2024-11-15 11:20] LABS: Basophils Absolute Auto 0.1 X10*3/uL (0.0-0.2); Basophils Percent Auto 1.2 % (0-2); Eosinophils Percent Auto 0.7 % (0-4); Hematocrit 42.2 % (37.0-47.0); Hemoglobin 14.1 g/dl (12.0-16.0); Imm Gran Abs Auto 0.01 X10*3/uL (0.00-0.03); Imm Gran Pct Auto 0.2 % (0.0-0.4); Lymphocytes Absolute Auto 2.2 X10*3/uL (1.2-4.9); Lymphocytes Percent Auto 52.8 % (20-40); Mean Corpuscular HGB Conc 33.4 g/dl (31.0-35.0); Mean Corpuscular Hemoglobin 30.5 pg (27.0-33.0); Mean Corpuscular Volume 91.1 fL (80.0-98.0); Mean Platelet Volume 10.4 fL (9.4-12.3); Monocytes Absolute Auto 0.4 X10*3/uL (0.1-1.2); Monocytes Percent Auto 9.2 % (2-11); Neutrophils Absolute Auto 1.5 x10*3/uL (2.0-8.3); Neutrophils Percent Auto 35.9 % (45-73); Platelet Count 220 X10*3/uL (160-400); Red Blood Count 4.63 X10*6/uL (4.20-5.50); Red Cell Distribution Width 14.8 % (11.0-16.0); White Blood Count 4.1 X10*3/uL (4.8-10.8)
== END 2024-11-15 07:41 | disposition home or self-care (01) ==
LOC: HO.WFDLDS 07:40
PROVIDERS: Visit Provider Internal Medicine
DX: R79.89 Other specified abnormal findings of blood chemistry (principal)
CPT/HCPCS: 85025

== ENCOUNTER 2024-12-09 09:20 | Outpatient (AMB) | payer MEDICARE, SELFPAY ==
--- NOTE | 2024-12-09 09:25 | A.OFFPC_ITS ---
Vital Signs 12/09/24 09:40 Height 5 ft 2.5 in Weight 156 lb BMI 28.1 BP 146/88 H Blood Pressure Location Rt brachial Position Sitting Respiration 14 Pulse 83 Pulse Source Pulse Oximeter Temp 98.3 F Temp Source Temporal Artery Scan Pulse Oximetry (%) 98 Oxygen Delivery Method Room Air Intake Visit Reasons: Discharge Follow-Up Rodrigues Intake Note: Farrah presents in the office today for a discharge follow up. Allergies levalbuterol [From Xopenex] Allergy (Severe, Verified 12/09/24 09:34) leg cramps HECTOR Inhibitors Allergy (Unknown, Verified 12/09/24 09:34) Fainting albuterol Allergy (Unknown, Verified 12/09/24:34) Chest Pain atorvastatin [From Lipitor] Allergy (Unknown, Verified 12/09/24:34) muscle wasting budesonide [From Pulmicort] Allergy (Unknown, Verified 12/09/24:34) Fainting codeine Allergy (Unknown, Verified 12/09/24:34) Hallucinations epinephrine Allergy (Unknown, Verified 12/09/24:34) elevated blood pressure erythromycin base Allergy (Unknown, Verified 12/09/24 09:34) shock like stupor gemfibrozil [From Lopid] Allergy (Unknown, Verified 12/09/24:34) bloody diarrhea meclizine Allergy (Unknown, Verified 12/09/24 09:34) itchy roof mouth nabumetone [From Relafen] Allergy (Unknown, Verified 12/09/24 09:34) Facial Swelling omega-3 acid ethyl esters Allergy (Unknown, Verified 12/09/24:34) Facial Swelling penicillin V Allergy (Unknown, Verified 12/09/24 09:34) Hives Penicillins Allergy (Unknown, Verified 12/09/24 09:34) Hives rofecoxib [From Vioxx] Allergy (Unknown, Verified 12/09/24:34) Facial Swelling tetracycline Allergy (Unknown, Verified 12/09/24:34) Rash iodine Allergy (Verified 12/09/24:34) Facial Swelling Sulfa (Sulfonamide Antibiotics) Allergy (Verified 12/09/24 09:34) Rash Hydralazine Adverse Reaction (Intermediate, Uncoded 12/09/24 16:39) Vomiting and diarrhea, headache Hydrochlorothiazide Adverse Reaction (Uncoded 12/09/24 16:39) Unknown Tobacco use date assessed: 12/09/24 Fall risk assessment: No Falls in past year Last assessed Fall Risk: 12/09/24 Dental Screening Dental Screen Date: 12/09/24 Did you have a dental visit in the last 12 months?: Yes Did you have a dental problem in the last 6 months where you did not have access to dental care?: No Was dental information given to patient?: Patient has dentist HPI HPI Comments History of Present Illness Details 79 y/o F with hypertension, hyperlipidem ia, CVA, allergies, frequent UTI, 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 Patient was admitted this month for hypertensive urgency to [facility]. Discharge date 12/04/2024. SBP close to 200 at ED. Presented with pounding HUIZAR, ataxia, confusion, facial paresthesia. Treated with IV hydralazine and IV labetolol. Neuro consulted. Brain MRI negative for CVA. Amlodipine increased to 2.5 mg twice daily with improved blood pressure control. She has been taking metoprolol and triamterene. Metoprolol dose was decreased due to daytime drowsiness and brain fog recently which she thinks contributed to elevated blood pressure. Reports negative reaction to hydralazine at the hospital. Patient says she had diarrhea and vomiting and headache following administration. Reports hospital attributed it to a vagal response, but she felt it was due to the medication. She says the same thing happen after her 2nd dosage so they discontinued it. Patient reports having many sensitivities and allergies to meds. She brings a list of home readings since discharge: 12/05/24 125/67 p 83 12/06/24 132/79 p 78 12/07/24 124/74 p 72 12/08/24 132/78 p 72 Reports only tolerating brand name Norvasc and Toprol. Patient says she is still fatigued since the hospital and has some brain fog, but she is doing a lot better. She says that she did not really eat for the 2 days while she was there due to side effects of the hydralazine. No further episodes of nausea or vomiting, but she says that her lower lip has been mildly swollen in the morning since being released. She thought this could be related to the increased dose of Norvasc as she recalled in the past having lower lip swelling when she took 5 mg. She is not sure if this also could be related to the hydralazine. No difficulty breathing, tongue swelling, throat swelling, hives, itching. ROS: Constitutional: No fevers or chills or night sweats. + improving fatigue Eyes: No double vision, loss of vision or blurry vision. Respiratory: No shortness of breath, cough or sputum production. Cardiovascular: No chest pain, palpitations or pedal edema. Gastrointestinal: No abdominal pain. Vomiting and diarrhea resolved. No blood in stools. Genitourinary: No dysuria, hematuria, urinary frequency. Neurologic: No headache, dizziness, syncope, unilateral weakness, ataxia, numbness or tingling in the extremities. Psychiatric: +anxiety Physical exam: Constitutional: Alert, in no distress. Eyes: Pupils are equal, round and reactive to light. Extraocular muscles intact. Mouth: Very mild swelling of the lower lip. No erythema or rash. No tongue/throat swelling. No hoarseness. Neck: Supple, Full range of motion. No lymphadenopathy. No palpable thyroid masses. Respiratory: Clear to auscultation. Cardiovascular: S1 S2 regular. No murmurs. Neurologic: No focal neurological deficits. Extremities: Warm and well perfused. No clubbing, cyanosis or edema. Psychiatric: Normal mood and affect [facility] Medical History (Updated 12/09/24 @ 16:44 by LILIANA Arthur) Lip swelling Hypertensive urgency Hypercholesteremia Anxiety Imbalance Memory loss Incontinence Asthma Surgical History H/O section History of tonsillectomy Family History Mother HTN (hypertension) Cardiovascular disease Thyroid disorder Maternal Grandmother HTN (hypertension) Cardiovascular disease Maternal Grandfather Cardiovascular disease Social History (Updated 12/09/24 @ 09:40 by Talia Henry MA) Housing: House Alcohol intake: never Patient Tobacco Use Status: Never used Tobacco e-Cigarette/Vaping Use: Never Used service: No Current occupational status: retired Cognitive needs: No Hearing needs: Yes (Hearing needs) Vision needs: Yes (glasses) Questionnaire Thrive Questionnaire Date Thrive assessed: 10/05/24 I am a: Patient What is your living situation today?: I have a steady place to live Within the past 12 months, did the food you bought not last and you didn't have the money to get more?: Never true Within the past 12 months, did you worry whether your food would run out before you got money to buy more?: Never true Do you have trouble paying for medicines?: No Do you have trouble getting transportation to medical appointments?: No Do you have trouble paying your heating and electricity bill?: No Do you have trouble taking care of your child, family member or friend?: No Do you have trouble with day-to-day activities such as bathing, preparing meals, shopping, managing finances, etc.?: No Are you currently unemployed and looking for a job?: No Are you interested in more education?: No Please select the resources that you would like help with: None Currently or been in a relationship where the following occur: No concerns reported THRIVE Score: 0 CJ-7 AMB Questionnaire CJ-7 Date CJ - 7 assessed: 10/28/23 Source: Developed by Drs. Casimiro Mcdermott, Jojo Jackson, Luther Lanier and colleagues, with an educational corina from [employer]. Physical exam (Primary Care) Vital Signs: Last Vital Signs Temp 98.3 F 12/09/24 09:40 Pulse 83 12/09/24 09:40 Resp 14 12/09/24 09:40 BP 146/88 H 12/09/24 09:40 Pulse Ox 98 12/09/24 09:40 Oxygen Delivery Method Room Air 12/09/24 09:40 BMI result Body Mass Index 28.1 Tobacco/Smoking Status: Tobacco use Status Tobacco use date assessed 12/09/24 12/09/24 09:43 Patient Tobacco Use Status Never used Tobacco 12/09/24 09:40 e-Cigarette/Vaping Use Never Used 12/09/24 09:40 Thrive Assessment: Date of Thrive Assessment Date Thrive assessed 10/05/24 12/09/24 09:26 Currently or been in a relationship where the following occur: No concerns reported Coding Level of Care Code Est Pt Level 4 (81322) Complex EM visit Add On G2211 Diagnoses Hypertensive urgency I16.0 Lip swelling R22.0 Assessment & Plan Assessment & Plan (1) Hypertensive urgency: Code(s): I16.0 - Hypertensive urgency Category: Medical (2) Lip swelling: Code(s): R22.0 - Localized swelling, mass and lump, head Category: Medical Plan In summary this is an 79-year-old female who was treated for hypertensive urgency at [facility]. Acute symptoms resolved. She has some residual fatigue which is improving. Reasonable target BP for her age is less than 140/90. She brings up reaction to hydralazine while hospitalized and edema of her lower lip with no other symptoms. This could be due to amlodipine (reported edema in the past on increased dose) or could be resolving reaction from hydralazine since she had significant side effects with that while hospitalized. I updated her allergy list. Recommended decreasing amlodipine back to 2.5 mg to err on the side of caution and switching metoprolol to carvedilol twice daily which generally works better for hypertension then metoprolol and may not cause increase in fatigue and brain fog she experienced w hen she was on 25 mg of metoprolol. She is very hesitant to make any further medication changes at this time. She would like to wait and see how she does over the next few days. Advised patient that lip swelling could progress to a worse reaction that could be life-threatening if it is due to amlodipine however she declined. States she has an EpiPen that is up-to-date and carries Benadryl with her. Agreed to go to the ER if symptoms worsen. I expressed that I was not entirely comfortable with this, but she continued to decline changes. I will discuss it with her PCP. She will also arrange a short term follow up with her PCP.
[2024-12-09 09:40] VITALS: BP 146/88; PULSE 83; RESP 14; TEMP 36.8; O2SAT 98; BMI 28.1
--- OUTSIDE RECORDS SUMMARY | 2024-12-09 10:07 | XMS_ITS | Clinical Summary ---
Author Organization [facility] ity Address [id number] [place] [id number] Care Team Providers Care Varnish Filterer Name Role Phone Unavailable Primary Care Provider [...] Documents on File Type Date Recorded Patient Manager Garage Expl anation Health Care Decision (hx) 10/24/2016 AD SHANTI DIRECTIVE
== END 2024-12-09 10:31 | disposition home or self-care (01) ==
LOC: HO.HMCFM 09:20
PROVIDERS: PCP Internal Medicine; Visit Provider Physician Assistant Medical
DX: I16.0 Hypertensive urgency (principal); R22.0 Localized swelling, mass and lump, head

== ENCOUNTER → 2024-12-09 09:20 | Outpatient (BNVA) | payer MEDICARE, SELFPAY | PROVIDERS: PCP Internal Medicine; Visit Provider Physician Assistant Medical | DX: R22.0 Localized swelling, mass and lump, head (principal); I16.0 Hypertensive urgency; R53.83 Other fatigue | CPT/HCPCS: 99212 ==

== ENCOUNTER 2025-01-04 11:30 | Outpatient (AMB) | payer MEDICARE, SELFPAY ==
--- NOTE | 2025-01-04 11:57 | MHC.PC.OV ---
Vital Signs 01/04/25 12:00 01/04/25 12:06 Height 5 ft 2.5 in Weight 160 lb BMI 28.8 BP 154/84 H 144/82 H Blood Pressure Location Lt brachial Lt brachial Position Sitting Sitting Respiration 16 Pulse 90 Pulse Source Pulse Oximeter Pulse Oximetry (%) 96 Oxygen Delivery Method Room Air Intake Visit Reasons: Dr. Mondragon BP review Intake Note: Blood pressure follow up. Burr Bench Hand Required: No Allergies levalbuterol (From Xopenex) Allergy (Severe, Verified 01/04/25 11:58) leg cramps HECTOR Inhibitors Allergy (Unknown, Verified 01/04/25 11:58) Fainting albuterol Allergy (Unknown, Verified 01/04/25 11:58) Chest Pain atorvastatin (From Lipitor) Allergy (Unknown, Verified 01/04/25 11:58) muscle wasting budesonide (From Pulmicort) Allergy (Unknown, Verified 01/04/25 11:58) Fainting codeine Allergy (Unknown, Verified 01/04/25 11:58) Hallucinations epinephrine Allergy (Unknown, Verified 01/04/25 11:58) elevated blood pressure erythromycin base Allergy (Unknown, Verified 01/04/25 11:58) shock like stupor gemfibrozil (From Lopid) Allergy (Unknown, Verified 01/04/25 11:58) bloody diarrhea meclizine Allergy (Unknown, Verified 01/04/25 11:58) itchy roof mouth nabumetone (From Relafen) Allergy (Unknown, Verified 01/04/25 11:58) Facial Swelling omega-3 acid ethyl esters Allergy (Unknown, Verified 01/04/25 11:58) Facial Swelling penicillin V Allergy (Unknown, Verified 01/04/25 11:58) Hives Penicillins Allergy (Unknown, Verified 01/04/25 11:58) Hives rofecoxib (From Vioxx) Allergy (Unknown, Verified 01/04/25 11:58) Facial Swelling tetracycline Allergy (Unknown, Verified 01/04/25 11:58) Rash iodine Allergy (Verified 01/04/25 11:58) Facial Swelling Sulfa (Sulfonamide Antibiotics) Allergy (Verified 01/04/25 11:58) Rash Hydralazine Adverse Reaction (Intermediate, Uncoded 01/04/25 11:58) Vomiting and diarrhea, headache Hydrochlorothiazide Adverse Reaction (Uncoded 01/04/25 11:58) Unknown Tobacco use date assessed: 01/04/25 Dental Screening Dental Screen Date: 12/09/24 HPI HPI Comments History of Present Illness Details 79 y/o F with hypertension, hyperlipidemia, CVA, allergies, frequent UTI, 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 Discharge date 12/04/2024. SBP close to 200 at ED. Presented with pounding HUIZAR, ataxia, confusion, facial paresthesia. Treated with IV hydralazine and IV labetolol. Neuro consulted. Brain MRI negative for CVA. Amlodipine increased to 2.5 mg twice daily with improved blood pressure control. Continues 12.5 metoprolol Her blood pressure readings have been 120s-130s. No headaches. CV: On amlodipine 2.5mg bid (does not tolerate generic), toprol 12.5mg daily (does not tolerate generic!), plavix, crestor 5mg MWF (difficulty tolerating statins). 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 Her neurologist is retiring GI: IBS. Previously seeing Nadine Murillo. Following FODMAP OA: Joint pain, neck pain. Residual right sided weakness after CVA (left lanier radiata) Urogyn: History of frequent UTI. Uses post coital macrobid. Needs less frequently as has h/o prostate cancer Neuropsych: History of CVA as above. 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 Had a lot of stress 2/2 husbands cancer. Her balance was worse in the setting. 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 Vaccines: Flu declined; Tdap 2017. ROS see HPI PHYSICAL EXAM: GENERAL: Alert and oriented x 3. NAD EYES: EOMI. Anicteric. HENT: Moist mucous membranes. No scleral icterus. LUNGS: Clear to auscultation bilaterally. CARDIOVASCULAR: Regular rate and rhythm. +murmur No JVD. ABDOMEN: Soft, non-tender +bs EXTREMITIES: No edema. Non-tender. SKIN: No rashes or lesions. Warm. NEUROLOGIC: No focal neurological deficits. CN II-XII grossly intact PSYCHIATRIC: Cooperative. Appropriate mood and affect [facility] Medical History (Updated 12/09/24 @ 16:44 by LILIANA Arthur) Lip swelling Hypertensive urgency Hypercholesteremia Anxiety Imbalance Memory loss Incontinence Asthma Surgical History H/O section History of tonsillectomy Family History Mother HTN (hypertension) Cardiovascular disease Thyroid disorder Maternal Grandmother HTN (hypertension) Cardiovascular disease Maternal Grandfather Cardiovascular disease Social History (Updated 12/09/24 @ 09:40 by Talia Henry MA) Housing: House Alcohol intake: never Patient Tobacco Use Status: Never used Tobacco e-Cigarette/Vaping Use: Never Used service: No Current occupational status: retired Cognitive needs: No Hearing needs: Yes (Hearing needs) Vision needs: Yes (glasses) Questionnaire Thrive Questionnaire Date Thrive assessed: 10/05/24 I am a: Patient What is your living situation today?: I have a steady place to live Within the past 12 months, did the food you bought not last and you didn't have the money to get more?: Never true Within the past 12 months, did you worry whether your food would run out before you got money to buy more?: Never true Do you have trouble paying for medicines?: No Do you have trouble getting transportation to medical appointments?: No Do you have trouble paying your heating and electricity bill?: No Do you have trouble taking care of your child, family member or friend?: No Do you have trouble with day-to-day activities such as bathing, preparing meals, shopping, managing finances, etc.?: No Are you currently unemployed and looking for a job?: No Are you interested in more education?: No Please select the resources that you would like help with: None Currently or been in a relationship where the following occur: No concerns reported THRIVE Score: 0 CJ-7 AMB Questionnaire CJ-7 Date CJ - 7 assessed: 10/28/23 Source: Developed by DrsEmile Mcdermott, Jojo Jackson, Luther Lanier and colleagues, with an educational corina from [employer]. Physical exam (Primary Care) Vital Signs: Last Vital Signs Pulse 90 01/04/25 12:00 Resp 16 01/04/25 12:00 BP 144/82 H 01/04/25 12:06 Pulse Ox 96 01/04/25 12:00 Oxygen Delivery Method Room Air 01/04/25 12:00 BMI result Body Mass Index 28.8 Tobacco/Smoking Status: Tobacco use Status Tobacco use date assessed 01/04/25 01/04/25 12:09 Patient Tobacco Use Status Never used Tobacco 01/04/25 11:57 e-Cigarette/Vaping Use Never Used 01/04/25 11:57 Thrive Assessment: Date of Thrive Assessment Date Thrive assessed 10/05/24 01/04/25 11:57 Currently or been in a relationship where the following occur: No concerns reported Coding Level of Care Code Est Pt Level 4 (07208) Diagnoses Primary hypertension I10 Hypertension type: primary hypertension Mixed hyperlipidemia E78.2 Hyperlipidemia type: mixed hyperlipidemia Anxiety disorder, unspecified type F41.9 Anxiety disorder type: unspecified anxiety disorder Assessment & Plan Assessment & Plan (1) Hypertension: Comment: Adequately controlled on current medications. Code(s): I10 - Essential (primary) hypertension Category: Medical Qualifiers: Hypertension type: primary hypertension Qualified Code(s): I10 - Essential (primary) hypertension (2) Hyperlipidemia: Comment: Takes statin as tolerated Code(s): E78.5 - Hyperlipidemia, unspecified Category: Medical Qualifiers: Hyperlipidemia type: mixed hyperlipidemia Qualified Code(s): E78.2 - Mixed hyperlipidemia (3) Anxiety disorder, unspecified: Code(s): F41.9 - Anxiety disorder, unspecified Category: Medical Qualifiers: Anxiety disorder type: unspecified anxiety disorder Qualified Code(s): F41.9 - Anxiety disorder, unspecified Plan 79 year old for follow up Blood pressure well controlled on current medication Anxiety is stable
[2025-01-04 12:00] VITALS: BP 154/84; PULSE 90; RESP 16; O2SAT 96; BMI 28.8
[2025-01-04 12:06] VITALS: BP 144/82
--- OUTSIDE RECORDS SUMMARY | 2025-01-04 12:35 | XMS_ITS | Clinical Summary ---
Author Organization [facility] ity Address [id number] [place] [id number] Care Team Providers Care Playground Attendant Name Role Phone Unavailable Primary Care Provider [...] - 2023-2 5 season) 2024 Influenza Vaccine (#1) 2025 HIB Vaccines Aged Out No longer [...] Documents on File Type Date Recorded Patient Facility Planner Expl anation Health Care Decision (hx) 10/24/2016 AD SHANTI DIRECTIVE
--- OUTSIDE RECORDS SUMMARY | 2025-01-04 12:35 | XMS_ITS | Patient Health Record ---
Author Organization [facility] Address [address] [place] [address] Care Team Providers Care Rock Climbing Team Member Name Role Phone CHINO BURDICK MD Primary Care Provider Julia Adam Unavailable [phone] Allergies Allergen (clinical drug ingredient) Drug/Non Drug [...] 08:34:20 AM Interpretation: Performing Lab:[facility], [address], [place], Phone - [phone], Director - Juan Notes/Report: Clinical Information:12-14 HOUR FASTING Comp. Metabolic Panel ([id number] Reviewed date:02/13/2024 08:34:54 AM Interpretation: Performing Lab:[facility], [address] [facility], [place], Phone - [phone], Director - Juan Notes/Report: Clinical Information:12-14 HOUR [...] 0-40 IU/L ALT (SGPT) 12 0-32 IU/L Vitamin D, 23-Ebveyop-[id number] Reviewed date:02/13/2024 08:34:41 AM Interpretation: Performing Lab:[facility] / ?.?? [place], [address] [facility], Phone - [phone], Director - Juan Notes/Report: Clinical Information:12-14 HOUR FASTING Vitamin D, 25-Hydroxy 39.8 30.0-100.0 ng/mL Vitamin D deficiency has been defined by the [place] of [employer] and an Endocrine Society practice guideline as a level of serum 25-OH vitamin D less than 20 ng/mL (1,2). The Endocrine Society went on to further define vitamin D insufficiency as a level between 21 and 29 ng/mL (2). 1. IOM ([place] of [employer]). 2010. Dietary reference intakes for calcium and D. [place]: The National Academies Press. 2. Jessenia MF, Ruben NC, Lynette-Venkat HUIZAR, et al. Evaluation, treatment, and prevention of vitamin D deficiency: an Endocrine Society clinical practice guideline. JCEM. 2010; 96(7):1911-30. PTH, Intact-310602 Reviewed date:02/13/2024 08:35:06 AM Interpretation: Performing Lab:[facility] [place], [address] [facility], [place], Phone - [phone], Director - Juan Notes/Report: Clinical Information:12-14 HOUR FASTING PTH, Intact 47 15-65 pg/mL CBC With Differential/Platel et-720348 Reviewed date:02/13/2024 08:34:33 AM Interpretation: Performing Lab:[facility], [address] [facility], Phone - [phone], Director - MDVern Notes/Report: Clinical Information:12-14 HOUR FASTING WBC 4.5 [...] % Immature Grans (Abs) 0.0 0.0-0.1 x10E3/uL TSH-[id number] Reviewed date:02/13/2024 08:35:01 AM Interpretation: Performing Lab:[facility], [address] [facility], [place], Phone - [phone], Director - Juan Notes/Report: Clinical Information:12-14 HOUR FASTING TSH 2.280 0.450-4.500 uIU/mL Reason For Referral No Information Medications Medication [...] day Active Claritin 10 MG 1 ORAL daily; Durati on: -3 04/14/2012 Active Probiotic Active Singulair 5 MG 1 tablet Orally Once a day 04/14/2012 Active Dyrenium 50 MG 1 capsule Orally Onc e a day 04/14/2012 Active Vitamin D 50 MCG (2000 UT) 1 capsule Ora lly Once a [...] Status Risk Notes Problem Postmenopausal atrophic vaginitis (91782734) Postmenopausal atrophic vaginitis (N95.2) Active confirmed Problem Gynecological examination normal (830031179300229) Encounter for gynecological examination (general) (routine) without abnormal findings (Z01.419) Active confirmed Problem Postcoital bleeding (19812189) Postcoital and contact bleeding (N93.0) Active confirmed Problem Hyperlipidemia (22848989) Other and unspecified hyperlipidemia (272.4) Active confirmed Major Problem Benign essential hypertension (7388090) Essential hypertension, benign (401.1) Active confirmed Major Problem Orthostatic hypotension (88075927) Orthostatic hypotension (458.0) Active confirmed Major Problem Vulvovaginitis (disorder) (70830530) Unspecified vaginitis and vulvovaginitis (616.10) Active confirmed Diag Problem Asthma (disorder) (105575719) Asthma, unspecified, unspecified status (493.90) Active confirmed Major Problem Menopausal symptom (18048536) Symptomatic menopausal or female climacteric states (627.2) Active confirmed Major Problem Postmenopausal atrophic vaginitis (45025248) Postmenopausal atrophic vaginitis (627.3) Active confirmed Diag Problem Disorder of bone and articular cartilage (disorder) (186351333) Disorder of bone and cartilage, unspecified (733.90) Active confirmed Diag Problem Gynecological examination normal (722614980242483) Routine gynecological examination (V72.31) Active confirmed Major Problem Screening for malignant neoplasm of colon (627473545) Special screening for malignant neoplasms, colon (V76.51) Active confirmed Major Vital Signs Temperature 97.3 degrees Fahrenheit 03/04/2024 Blood pressure diastolic 84 mm Hg 03/04/2024 Height 62.25 in 03/04/2024 Blood pressure systolic 134 mm Hg 03/04/2024 Weight 160 lbs 03/04/2024 BMI 29.03 kg/m2 03/04/2024 Encounters Encounter Location Date Provider Diagnosis [facility] [address] [address] 03/04/2024 Julia Casarez Other specified disorders of bone density and structure, multiple sites M85.[address] [address] 02/06/2024 Julia Casarez Disorder of bone density and structure, 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 Assessments Encounter Date Diagnosis (ICD Code) Assessment Notes Treatment Notes Treatment Clinical Notes Section Notes 02/06/2024 Disorder of bone density and structure, unspecified (ICD-10 - M85.9) 03/04/2024 Other specified disorders of bone density and structure, multiple sites (ICD-10 - M85.89) DISCUSSED LEYLA'S BMD RESULTS AND STEADY DECREASE IN T-SCORES. DISCUSSED OSTEOPENIA AND ITS NEGATIVE EFFECTS ON HER HEALTH. ADEQUATE CALCIUM AND VIT D. WEIGHT BEARING EXERCISES. REPEAT BMD IN 2025. Plan Of Treatment Pending Test Test Name Order Date MAMMOGRAM, SCREENING 08/21/2021 MAMMOGRAM, SCREENING 11/19/2023 MAMMOGRAM, SCREENING 08/11/2015 BONE DENSITY 11/19/2023 BONE DENSITY 08/21/2021 MM Digital Mammo Screening 08/21/2021 MM Digital Mammo Screening 11/19/2023 Insurance Providers Payer Name Payer Address Payer Phone Subscriber Number Group Number Insured Name Patient Relationship to Insured Coverage Start Date Coverage End Date [employer] MEDICARE PPO [address] [place] [address] [phone] [id number] YINKA SIMMONS Self - patient is the [...] History Surgery Date(Month/Year) x 2 Colonoscopy Tonsillectomy/Adnoidectomy [facility] Hospitalization History Reason Date(Month/Year) See Surgical Hx
== END 2025-01-04 14:27 | disposition home or self-care (01) ==
LOC: HO.HMCFM 11:32
PROVIDERS: PCP Internal Medicine; Visit Provider Internal Medicine
DX: I10 Essential (primary) hypertension (principal); E78.2 Mixed hyperlipidemia; F41.9 Anxiety disorder, unspecified

== ENCOUNTER → 2025-01-04 11:30 | Outpatient (BNVA) | payer MEDICARE, SELFPAY | PROVIDERS: PCP Internal Medicine; Visit Provider Internal Medicine | DX: I10 Essential (primary) hypertension (principal); E78.2 Mixed hyperlipidemia; F41.9 Anxiety disorder, unspecified; I69.351 Hemiplegia and hemiparesis following cerebral infarction affecting right dominant side; Z79.02 Long term (current) use of antithrombotics/antiplatelets; Z79.899 Other long term (current) drug therapy | CPT/HCPCS: 99212 ==

== ENCOUNTER 2025-04-18 10:32 | Outpatient (REF) | payer MEDICARE, SELFPAY ==
--- OUTSIDE RECORDS SUMMARY | 2025-04-18 14:09 | XMS_ITS | Clinical Summary ---
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
--- OUTSIDE RECORDS SUMMARY | 2025-04-18 14:10 | XMS_ITS | Patient Health Record ---
Author Organization [employer] [facility] Address [address] [place] [address] Care Team Providers Care Electrician Second Name Role Phone Miri VASQUEZ MD, CHINO Primary Care Provider Julia Adam Unavailable [phone] Allergies Allergen (clinical drug ingredient) Drug/Non Drug [...] Active nabumetone Relafen Unknown Drug Allergy Active Reason For Referral No Information Medications Medication [...] Status Risk Notes Problem Postmenopausal atrophic vaginitis (77425100) Postmenopausal atrophic vaginitis (N95.2) Active confirmed Problem Gynecological examination normal (507099862834530) Encounter for gynecological examination (general) (routine) without abnormal findings (Z01.419) Active confirmed Problem Postcoital bleeding (88161046) Postcoital and contact bleeding (N93.0) Active confirmed Problem Hyperlipidemia (65993030) Other and unspecified hyperlipidemia (272.4) Active confirmed Major Problem Benign essential hypertension (6963411) Essential hypertension, benign (401.1) Active confirmed Major Problem Orthostatic hypotension (33363338) Orthostatic hypotension (458.0) Active confirmed Major Problem Vulvovaginitis (disorder) (01673353) Unspecified vaginitis and vulvovaginitis (616.10) Active confirmed Diag Problem Asthma (disorder) (063131957) Asthma, unspecified, unspecified status (493.90) Active confirmed Major Problem Menopausal symptom (81368101) Symptomatic menopausal or female climacteric states (627.2) Active confirmed Major Problem Postmenopausal atrophic vaginitis (37896524) Postmenopausal atrophic vaginitis (627.3) Active confirmed Diag Problem Disorder of bone and articular cartilage (disorder) (857378073) Disorder of bone and cartilage, unspecified (733.90) Active confirmed Diag Problem Gynecological examination normal (289271987532354) Routine gynecological examination (V72.31) Active confirmed Major Problem Screening for malignant neoplasm of colon (859137866) Special screening for malignant neoplasms, colon (V76.51) Active confirmed Major Plan Of Treatment Pending Test Test Name Order Date MAMMOGRAM, SCREENING 08/11/2015 MAMMOGRAM, SCREENING 08/21/2021 MAMMOGRAM, SCREENING 11/19/2023 BONE DENSITY 08/21/2021 BONE DENSITY 11/19/2023 MM Digital Mammo Screening 11/19/2023 MM Digital Mammo Screening 08/21/2021 Insurance Providers Payer Name Payer Address Payer Phone Subscriber Number Group Number Insured Name Patient Relationship to Insured Coverage Start Date Coverage End Date [facility] MEDIC[facility] PPO [address] [place] [address] [id number] YINKA SIMMONS Self - patient is the [...] History Surgery Date(Month/Year) x 2 Colonoscopy Tonsillectomy/Adnoidectomy [place] [facility] Hospitalization History Reason Date(Month/Year) See Surgical Hx
[2025-04-18 14:36] LABS: MANUAL DIFF FLAG NO
[2025-04-18 14:52] LABS: Hematocrit 41.5 % (37.0-47.0); Hemoglobin 14.1 g/dl (12.0-16.0); Imm Gran Abs Auto 0.01 X10*3/uL (0.00-0.03); Imm Gran Pct Auto 0.2 % (0.0-0.4); Lymphocytes Absolute Auto 2.3 X10*3/uL (1.2-4.9); Mean Corpuscular HGB Conc 34.0 g/dl (31.0-35.0); Mean Corpuscular Hemoglobin 30.6 pg (27.0-33.0); Mean Corpuscular Volume 90.0 fL (80.0-98.0); NRBC Abs Auto 0.000 X10*3/uL (0.0-0.012); NRBC Pct Auto 0.0 /100WBC (0.0-0.2); Platelet Count 238 X10*3/uL (160-400); Red Blood Count 4.61 X10*6/uL (4.20-5.50); White Blood Count 5.5 X10*3/uL (4.8-10.8)
[2025-04-18 15:23] LABS: Alanine Aminotransferase 21 U/L (0-31); Albumin Level 4.5 g/dL (3.5-5.0); Alkaline Phosphatase 68 U/L (39-117); Anion Gap 12 (12-20); Aspartate Amino Transferase 66 U/L (5-31); Blood Urea Nitrogen 14 mg/dL (9-16); Calcium 9.5 mg/dL (8.4-10.2); Carbon Dioxide 30 mmol/L (22-29); Chloride 102 mmol/L (96-108); Cholesterol 227 mg/dL (<200); Estimated Glomerular Filt Rate > 60; HDL Cholesterol 58 mg/dL (>40); Potassium 3.6 mmol/L (3.3-5.1); Sodium 140 mmol/L (135-145); Total Protein 7.7 g/dL (6.5-8.0); Triglycerides 613 mg/dL (<150)
== END 2025-04-18 10:33 | disposition home or self-care (01) ==
LOC: HO.WFDLDS 10:32
PROVIDERS: PCP Internal Medicine; Visit Provider Internal Medicine
DX: Z00.00 Encounter for general adult medical examination without abnormal findings (principal); I10 Essential (primary) hypertension; E78.2 Mixed hyperlipidemia; R35.89 Other polyuria; M54.2 Cervicalgia; G47.33 Obstructive sleep apnea (adult) (pediatric); F41.9 Anxiety disorder, unspecified; H35.30 Unspecified macular degeneration; Z86.73 Personal history of transient ischemic attack (TIA), and cerebral infarction without residual deficits; Z99.89 Dependence on other enabling machines and devices
CPT/HCPCS: 80053; 80061; 84443; 85025; 96127; 99397

== ENCOUNTER 2025-04-18 10:32 | Outpatient (AMB) | payer MEDICARE, SELFPAY ==
--- NOTE | 2025-04-18 10:35 | A.OFFPC_ITS ---
Vital Signs 04/18/25 10:46 04/18/25 10:51 Height 5 ft 2.5 in Weight 162 lb 2 oz BMI 29.2 BP 152/84 H 148/76 H Blood Pressure Location Lt brachial Lt brachial Position Sitting Sitting Respiration 16 Pulse 88 Pulse Source Pulse Oximeter Temp 98 F Temp Source Oral Pulse Oximetry (%) 97 Oxygen Delivery Method Room Air Intake Visit Reasons: cpe - see comments Intake Note: cpe Bull Gang Supervisor Required: No Allergies levalbuterol (From Xopenex) Allergy (Severe, Verified 04/18/25 10:41) leg cramps HECTOR Inhibitors Allergy (Unknown, Verified 04/18/25 10:41) Fainting albuterol Allergy (Unknown, Verified 04/18/25 10:41) Chest Pain atorvastatin (From Lipitor) Allergy (Unknown, Verified 04/18/25 10:41) muscle wasting budesonide (From Pulmicort) Allergy (Unknown, Verified 04/18/25 10:41) Fainting codeine Allergy (Unknown, Verified 04/18/25 10:41) Hallucinations epinephrine Allergy (Unknown, Verified 04/18/25 10:41) elevated blood pressure erythromycin base Allergy (Unknown, Verified 04/18/25 10:41) shock like stupor gemfibrozil (From Lopid) Allergy (Unknown, Verified 04/18/25 10:41) bloody diarrhea meclizine Allergy (Unknown, Verified 04/18/25 10:41) itchy roof mouth nabumetone (From Relafen) Allergy (Unknown, Verified 04/18/25 10:41) Facial Swelling omega-3 acid ethyl esters Allergy (Unknown, Verified 04/18/25 10:41) Facial Swelling penicillin V Allergy (Unknown, Verified 04/18/25 10:41) Hives Penicillins Allergy (Unknown, Verified 04/18/25 10:41) Hives rofecoxib (From Vioxx) Allergy (Unknown, Verified 04/18/25 10:41) Facial Swelling tetracycline Allergy (Unknown, Verified 04/18/25 10:41) Rash iodine Allergy (Verified 04/18/25 10:41) Facial Swelling Sulfa (Sulfonamide Antibiotics) Allergy (Verified 04/18/25 10:41) Rash Hydralazine Adverse Reaction (Intermediate, Uncoded 01/04/25 11:58) Vomiting and diarrhea, headache Hydrochlorothiazide Adverse Reaction (Uncoded 01/04/25 11:58) Unknown Tobacco use date assessed: 04/18/25 Dental Screening Dental Screen Date: 04/18/25 Did you have a dental visit in the last 12 months?: Yes Did you have a dental problem in the last 6 months where you did not have access to dental care?: Yes Was dental information given to patient?: Patient has dentist HPI HPI Comments History of Present Illness Details 79 y/o F with hypertension, hyperlipidem ia, CVA, allergies, frequent UTI, 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 Her neurologist retired. To recall admitted in November for hypertensive urgency to [facility]. Brain MRI negative for CVA. Amlodipine increased to 2.5 mg twice daily with improved blood pressure control. Continues 12.5 metoprolol GI: IBS. Previously seeing Nadine Murillo. Following FODMAP. No interval issues OA: Joint pain, neck pain. Urogyn: History of frequent UTI. Uses post coital macrobid. Needs less frequently as has h/o prostate cancer Neuropsych: History of CVA as above. 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 Had a lot of stress 2/2 husbands cancer. Her balance was worse in the setting. Generally sleeping okay. Residual right sided weakness after CVA (left lanier radiata). She has KIMBERLY treated with bipap. Needs new supplies in August. Testing was remote Ophtho: Dr Mock. AREDs for dry macular degeneration. UTD Colon: 2018 Mammo: reports done Summer 2023 -2 years. She thinks she stop DEXA Summer 2023- 2 years PAP Summer 2023 every 2 years Vaccines: Flu declined; Tdap 2017. Does not get immunizations after having CVA soon after Td shot ROS see HPI PHYSICAL EXAM: GENERAL: Alert and oriented x 3. NAD EYES: EOMI. Anicteric. HENT: Moist mucous membranes. No scleral icterus. LUNGS: Clear to auscultation bilaterally. CARDIOVASCULAR: Regular rate and rhythm. +murmur No JVD. ABDOMEN: Soft, non-tender +bs EXTREMITIES: No edema. Non-tender. SKIN: No rashes or lesions. Warm. NEUROLOGIC: No focal neurological deficits. CN II-XII grossly intact PSYCHIATRIC: Cooperative. Appropriate mood and affect [facility] Medical History Lip swelling Hypertensive urgency Hypercholesteremia Anxiety Imbalance Memory loss Incontinence Asthma Surgical History H/O section History of tonsillectomy Family History Mother HTN (hypertension) Cardiovascular disease Thyroid disorder Maternal Grandmother HTN (hypertension) Cardiovascular disease Maternal Grandfather Cardiovascular disease Social History Housing: House Alcohol intake: never Patient Tobacco Use Status: Never used Tobacco e-Cigarette/Vaping Use: Never Used service: No Current occupational status: retired Cognitive needs: No Hearing needs: Yes (Hearing needs) Vision needs: Yes (glasses) Questionnaire PHQ-9 Over the last 2 weeks, how often have you been bothered by any of the following problems? 1. Little interest or pleasure in doing things: not at all 2. Feeling down, depressed, or hopeless: not at all 3. Trouble falling or staying asleep, or sleeping too much: several days 4. Feeling tired or having little energy: not at all 5. Poor appetite or overeating: not at all 6. Feeling bad about yourself - or that you are a failure or have let yourself or your family down: not at all 7. Trouble concentrating on things, such as reading the newspaper or watching television: not at all 8. Moving or speaking so slowly that other people could have noticed. Or the opposite - being so fidgety or restless that you have been moving around a lot more than usual: not at all 9. Thoughts that you would be better off or of hurting yourself in some way: not at all Total score: 1 Depression Screening Interpretation: Negative Depression Screening Done: Yes 75302 - PHQ-9 Billing: Yes Source: Developed by Drs. Casimiro Mcdermott, Jojo Jackson, Luther Lanier and colleagues, with an educational corina from [employer] ([employer]). Thrive Questionnaire Date Thrive assessed: 10/05/24 I am a: Patient What is your living situation today?: I have a steady place to live Within the past 12 months, did the food you bought not last and you didn't have the money to get more?: Never true Within the past 12 months, did you worry whether your food would run out before you got money to buy more?: Never true Do you have trouble paying for medicines?: No Do you have trouble getting transportation to medical appointments?: No Do you have trouble paying your heating and electricity bill?: No Do you have trouble taking care of your child, family member or friend?: No Do you have trouble with day-to-day activities such as bathing, preparing meals, shopping, managing finances, etc.?: No Are you currently unemployed and looking for a job?: No Are you interested in more education?: No Please select the resources that you would like help with: None Currently or been in a relationship where the following occur: No concerns reported THRIVE Score: 0 AUDIT C Alcohol Use Questionnaire (AUDIT-C) 3. How often do you have six or more drinks on one occasion?: Never Total Score: 0 CJ-7 AMB Questionnaire CJ-7 Date CJ - 7 assessed: 04/18/25 Source: Developed by Drs. Casimiro Mcdermott, Jojo Jackson, Luther Lanier and colleagues, with an educational corina from [employer] ([employer]). CJ-7 Assessment Billing CJ-7 Assessment Tool: CJ-7 Assessment 65341 Physical exam (Primary Care) Vital Signs: Last Vital Signs Temp 98 F 04/18/25 10:46 Pulse 88 04/18/25 10:46 Resp 16 04/18/25 10:46 BP 148/76 H 04/18/25 10:51 Pulse Ox 97 04/18/25 10:46 Oxygen Delivery Method Room Air 04/18/25 10:46 BMI result Body Mass Index 29.2 Tobacco/Smoking Status: Tobacco use Status Tobacco use date assessed 04/18/25 04/18/25 10:49 Patient Tobacco Use Status Never used Tobacco 04/18/25 10:44 e-Cigarette/Vaping Use Never Used 04/18/25 10:44 PHQ-9: PHQ-9 Score PHQ-9: Total score 1 04/18/25 10:56 Depression Screening Interpretation: Negative Thrive Assessment: Date of Thrive Assessment Date Thrive assessed 10/05/24 04/18/25 10:37 Currently or been in a relationship where the following occur: No concerns reported Coding Level of Care Code Est Pt Prev Care >65y(87417) Diagnoses Physical exam Z00.00 Primary hypertension I10 Hypertension type: primary hypertension Mixed hyperlipidemia E78.2 Hyperlipidemia type: mixed hyperlipidemia Anxiety F41.9 Macular degeneration of both eyes, unspecified type H35.30 Macular degeneration type: unspecified type Eye laterality: bilateral Cerebrovascular accident (CVA), unspecified mechanism I63.9 CVA mechanism: unspecified KIMBERLY treated with BiPAP G47.33 Additional Codes CJ-7 Assessment Billing - CJ-7 Assessment Tool: CJ-7 Assessment 85086 ([id number]) PHQ-9 - 53141 - PHQ-9 Billing: Yes ([id number]) Assessment & Plan Assessment & Plan (1) Physical exam: Code(s): Z00.00 - Encounter for general adult medical examination without abnormal findings (2) Hypertension: Comment: Adequately controlled on current medications. Code(s): I10 - Essential (primary) hypertension Category: Medical Qualifiers: Hypertension type: primary hypertension Qualified Code(s): I10 - Essential (primary) hypertension (3) Hyperlipidemia: Comment: Takes statin as tolerated Code(s): E78.5 - Hyperlipidemia, unspecified Category: Medical Qualifiers: Hyperlipidemia type: mixed hyperlipidemia Qualified Code(s): E78.2 - Mixed hyperlipidemia (4) Anxiety: Code(s): F41.9 - Anxiety disorder, unspecified Category: Medical (5) Macular degeneration: Code(s): H35.30 - Unspecified macular degeneration Category: Medical Qualifiers: Macular degeneration type: unspecified type Eye laterality: bilateral Qualified Code(s): H35.30 - Unspecified macular degeneration (6) CVA (cerebral vascular accident): Code(s): I63.9 - Cerebral infarction, unspecified Category: Medical Qualifiers: CVA mechanism: unspecified Qualified Code(s): I63.9 - Cerebral infarction, unspecified (7) KIMBERLY treated with BiPAP: Code(s): G47.33 - Obstructive sleep apnea (adult) (pediatric) Category: Medical Plan 79 year old female presenting for CPE Interval history reviewed Chronic medical conditions are stable KIMBERLY-repeat sleep study stopping mammos Labs ordered Orders: Orders Complete Blood Count Auto Diff Today E78.2 - Mixed hyperlipidemia, I10 - Essential (primary) hypertension, R35.89 - Other polyuria Comprehensive Met. Panel Today E78.2 - Mixed hyperlipidemia, I10 - Essential (primary) hypertension, R35.89 - Other polyuria Lipid Panel Today E78.2 - Mixed hyperlipidemia, I10 - Essential (primary) hypertension, R35.89 - Other polyuria TSH reflex Free T4 Today E78.2 - Mixed hyperlipidemia, I10 - Essential (primary) hypertension, R35.89 - Other polyuria Pathologist Review - CBC Today E78.2 - Mixed hyperlipidemia, I10 - Essential (primary) hypertension, R35.89 - Other polyuria RT home sleep study Today G47.33 - Obstructive sleep apnea (adult) (pediatric) Medications: Changed From ipratropium bromide 17 mcg/actuation (Atrovent HFA) 2 puffs inhalation Q8H 12.9 grams 0RF To Atrovent HFA 17 mcg/actuation (ipratropium bromide) 2 puffs inhalation Q8H 12 .9 grams 3RF NS
[2025-04-18 10:46] VITALS: BP 152/84; PULSE 88; RESP 16; TEMP 36.6; O2SAT 97; BMI 29.2
[2025-04-18 10:51] VITALS: BP 148/76
== END 2025-04-18 11:15 | disposition home or self-care (01) ==
LOC: HO.HMCFM 10:32
PROVIDERS: PCP Internal Medicine; Visit Provider Internal Medicine
DX: Z00.00 Encounter for general adult medical examination without abnormal findings (principal); I10 Essential (primary) hypertension; E78.2 Mixed hyperlipidemia; F41.9 Anxiety disorder, unspecified; H35.30 Unspecified macular degeneration; I63.9 Cerebral infarction, unspecified; G47.33 Obstructive sleep apnea (adult) (pediatric)